=== PATIENT | female | born 1955 | race Caucasian/White ===

== ENCOUNTER 2019-05-28 13:59 | Inpatient (IN) ==
--- OUTSIDE RECORDS SUMMARY | 2019-05-28 14:01 | External Medical Summary | Continuity of Care Document ---
:1955 Author Name Enzo Gu, Provider Address Unavailable Unavailable , Care Team Providers Name Role Phone Nishant Schumacher [email or web address] Sara Jacobsen [email or web address] [email or web address] Unavailable Unavailable Unavailable Unavailable Unavailable Assessments Assessed Problems:Lyme disease Problems Lyme disease (088.81) (A69.20) Arthritis (716.90) (M19.90) Cutaneous lupus erythematosus (695.4) (L93.2) Allergies and Adverse Reactions No Known Drug Allergies (Allergy) Medications hydroCHLOROthiazide TABS Refills: 0 Toprol XL 25 MG Oral Tablet Extended Release 24 Hour Refills: 0 Norvasc TABS Refills: 0 Betamethasone Dipropionate Aug 0.05 % Ex ternal Cream; Apply to nose tid for one week then BID one week then daily one week then twice a week. Brittanie Jacobsen Start: 11-Aug-2017 Quantity: 1 15 GM Tube Refills: 1 Mupirocin 2 % External Ointment; Apply to nose 3 times per day for 7 days Brittanie Jacobsen Start: 11-Aug-2017 Quantity: 1 15 GM Tube Refills: 1 Hydroxychloroquine Sulfate 200 MG Oral Tablet; TAKE 1 TABLET DAILY. Brittanie Schumacher Start: 17-Apr-2015 Quantity: 90 Refills: 2 Mometasone Furoate 0.1 % External Ointme nt; APPLY TO AFFECTED AREA(S) ONCE DAILY DIRECTED. Brittanie Schumacher Start: 17-Apr-2015 Quantity: 1 45 GM Tube Refills: 6 Doxycycline Hyclate 100 MG Oral Tablet; take one tablet BID 1 hour before or 2 hours after meal with a full glass of water. Brittanie Jacobsen Start: 18-Aug-2017 Quantity: 180 Refills: 0 Procedures Procedures not documented Immunizations Immunizations not documented Interventions Medication ChangesDoxycycline Hyclate 100 MG Oral Tablet - Start Plan of Treatment Planned Observations Planned Goals not documented Results No Known Results Results not documented Encounters Appointment; Sara Jacobsen M.D. 11-Aug-2017 13:00 Encounter Diagnosis: Problem not documented
--- OUTSIDE RECORDS SUMMARY | 2019-05-28 14:02 | External Medical Summary | Continuity of Care Document ---
:1955 Author Name Enzo Gu, Provider Address Unavailable Unavailable , Care Team Providers Name Role Phone Nishant Schumacher [email or web address] Sara [email or web address] [email or web address] Unavailable Unavailable Unavailable Unavailable Unavailable Assessments Assessed Problems:Lyme disease Problems Cutaneous lupus erythematosus (695.4) (L93.2) Arthritis (716.90) (M19.90) Lyme disease (088.81) (A69.20) Allergies and Adverse Reactions No Known Drug Allergies (Allergy) Medications Norvasc TABS Refills: 0 Toprol XL 25 MG Oral Tablet Extended Release 24 Hour Refills: 0 hydroCHLOROthiazide TABS Refills: 0 Hydroxychloroquine Sulfate 200 MG Oral Tablet; TAKE 1 TABLET DAILY. Brittanie Schumacher Start: 17-Apr-2015 Quantity: 90 Refills: 2 Mometasone Furoate 0.1 % External Ointme nt; APPLY TO AFFECTED AREA(S) ONCE DAILY DIRECTED. Brittanie Schumacher Start: 17-Apr-2015 Quantity: 1 45 GM Tube Refills: 6 Mupirocin 2 % External Ointment; Apply to nose 3 times per day for 7 days Brittanie Jacobsen Start: 11-Aug-2017 Quantity: 1 15 GM Tube Refills: 1 Betamethasone Dipropionate Aug 0.05 % Ex ternal Cream; Apply to nose tid for one week then BID one week then daily one week then twice a week. Brittanie Jacobsen Start: 11-Aug-2017 Quantity: 1 15 GM Tube Refills: 1 Doxycycline Hyclate 100 MG Oral Tablet; take [...]
[2019-05-28] MEDS ORDERED: SODIUM CHLORIDE 0.9% 1000ML 500 ML IV ONE (14:22)
--- NOTE | 2019-05-28 14:28 | Emergency Department Note ---
Impression & Plan Acute hyponatremia, Acute hypokalemia, Weakness ED Provider Note NAME: KEVEN MULLEN AGE: 64 SEX: F : 1955 ARRIVES VIA: Walk-In INFORMANT: Patient, ED PROVIDER(S): Rd White DO CHIEF COMPLAINT: Hyponatremia HPI: Patient is a 64-year-old female that presents the ER with a past medical history of arthritis and lupus for abnormal labs. She notes that she passed out 3 x 2 weeks ago. Both of these occurred when she was up walking and there is no prodromal symptoms. She was seen by her PCP the following week and had blood work. She denied any chest pain or shortness of breath. She has no complaints at this time. Blood work resulted and she got a phone call today which showed hyponatremia. She was referred into the ER for further work-up for the hyponatremia. She denies any chest pain, shortness of breath, nausea vomiting diarrhea. She notes she is feeling better and her weakness has nearly resolved. She has no other complaints at this time. She has been instructed to decrease 1 of her medications from 50 mg to 25 mg but she is unsure of what it is. ROS: See above HPI for pertinent positives & negatives. A total of 10 systems reviewed and were otherwise negative. PAST MEDICAL HISTORY:See Below PAST SURGICAL HISTORY:See Below FAMILY HISTORY:See Below SOCIAL HISTORY:See Below HOME MEDICATIONS:See Below ALLERGIES:See Below VITALS:See Below PHYSICAL EXAMINATION: GENERAL: Sitting up in bed, alert, well appearing, well nourished, no distress, non-toxic EYE EXAM: normal conjunctiva. PERRL and EOM's grossly intact. FACE: Malar rash along the bridge of the nose and bilateral cheeks OROPHARYNX: no exudate, no erythema, lips, buccal mucosa, and tongue normal and mucous membranes are moist NECK: supple, no nuchal rigidity, no adenopathy, non-tender LUNGS: Clear to auscultation. Normal chest wall mechanics HEART: no murmurs, S1 normal and S2 normal ABDOMEN: abdomen soft, non-tender, normo-active bowel sounds, no masses, no rebo und or guarding. BACK: Back is symmetrical on inspection and there is no deformity, no midline tenderness, no CVA tenderness. SKIN: no rashes and no bruising UPPER EXTREMITIES: upper extremities are grossly normal. LOWER EXTREMITIES: No pitting edema. NEURO EXAM: Normal sensorium, cranial nerves II-XII grossly intact, normal speech, no gross weakness of arms, no gross weakness of legs. MEDICAL DECISION MAKING: Patient is a 64-year-old female who presents the ER referred in by the PCP for weakness. Patient was seen 2 weeks ago for syncopal episode. Patient had blood work done at the PCPs office over a week ago. She was called today to inform her that her serum sodium was low. She notes that she is feeling better as opposed to a week ago. IV was established blood work was obtained shows no significant leukocytosis or anemia. INR was unremarkable. BMP with a significantly low sodium at 118. Potassium was low at 2.4. Magnesium was borderline low at 1.8. LFTs bilirubin was unremarkable. TSH unremarkable. UA was slightly contaminated with multiple epithelial cells. Urine osmolarity was low at 107. Serum osmolality was low at 248. Patient was already given IV fluids prior to results of the urine and serum osmolarity. She was also given IV potassium and oral potassium. She was accidentally given 10 mEq of potassium acetate as opposed to potassium chloride. She was also given 1 g IV magnesium. This is discussed with [facility] hospitalist and patient was admitted for hyponatremia. Triage Nursing notes reviewed. Prior medical records reviewed Vital Signs: reviewed and remarkable for hypertension Differential diagnosis: Differential diagnosis includes etiologies such as ectopic , dysfunction uterine bleeding, bleeding dyscrasia, trauma, infection, as well as others were entertained.n ER treatment provided: See below Diagnostics interpreted by me: ECG: Sinus rhythm rate of 69 Normal axis No PVCs QTC slightly prolonged at 472 Cardiac Monitoring: Sinus rhythm rate 67 Laboratory studies: As stated above and show below. Imaging studies: Portable AP upright 1 view of the chest shows no focal infiltrate or pn eumothorax. Consultation(s): Jammie lawton KEY BED INSTALLER from [facility] ED COURSE: Procedures: none Critical Care: None Past Med/Surg History Medical History (Updated 05/28/19 @ 17:[address] DO) Arthritis Hypertension Lumbar radiculopathy Lupus Surgical History (Updated 05/28/19 @ 16:57 by AMADOU North) History of hysterectomy Social History Preferred Language: Japanese Communication Ability: Effective Beliefs That Will Affect Care: Amish Amish Beliefs: BUDDHIST Current Living Situation: Spouse Other Information That Helps Us Care for You: No Feels Safe at Home: Yes Safety Concerns: Feels Safe At This Time Smoking Status: Current every day smoker Tobacco Type: cigarettes ; Cigarettes Per Day: 10 ; Hx Alcohol Use: Yes Alcohol type: wine Hx Substance Use: No Allergies Allergies Allergy/AdvReac Type Severity Reaction Status Date / Time lactose AdvReac Gastrointestinal Verified 05/28/19 14:31 Upset Home Meds Home Medications Medication Instructions Recorded Confirmed chlorthalidone 25 mg PO DAILY 05/28/19 05/28/19 cholecalciferol (vitamin D3) 125 mcg PO DAILY 05/28/19 05/28/19 [Vitamin D3] duloxetine 60 mg PO DAILY 05/28/19 05/28/19 estradiol 1 g VAGINAL DAILY 05/28/19 05/28/19 methocarbamol 500 mg PO QID PRN 05/28/19 05/28/19 metoprolol tartrate 25 mg PO BID 05/28/19 05/28/19 quinapril 40 mg PO DAILY 05/28/19 05/28/19 Results & Data (ED) Vital Signs Vital Signs - 24 hr 05/28/19 14:00 05/28/19 15:30 05/28/19 16:41 Temperature 37.0 C Temperature Source Oral Pulse Rate 77 Pulse Rate [Apical] 75 65 Pulse Rhythm [Apical] Regular Regular Respiratory Rate 16 17 17 Respiratory Effort / Characteristics Non-Labored Spontaneous Non-Labored Spontaneous Respiratory Depth Normal Normal Blood Pressure 170/107 H Blood Pressure [Right Arm] 175/97 H 189/99 H Blood Pressure Mean 128 Blood Pressure Mean [Right Arm] 123 129 Pulse Oximetry 94 96 96 Oxygen Delivery Method Room Air Room Air Room Air Sepsis Recent Fever Within 48 Hours No Sepsis New/Unexplained Change in Mental Status No Sepsis Action Taken by Nursing No Action Required 05/28/19 16:50 Temperature Temperature Source Pulse Rate Pulse Rate [Apical] Pulse Rhythm [Apical] Respiratory Rate Respiratory Effort / Characteristics Respiratory Depth Blood Pressure Blood Pressure [Right Arm] Blood Pressure Mean Blood Pressure Mean [Right Arm] Pulse Oximetry Oxygen Delivery Method Room Air Sepsis Recent Fever Within 48 Hours Sepsis New/Unexplained Change in Mental Status Sepsis Action Taken by Nursing Laboratory Data Result diagrams: 05/28/19 14:45 05/28/19 14:45 Lab Results 05/28/19 05/28/1920 Range/Units 14:45 14:45 14:45 WBC 6.29 (4.8-10.8) K/uL RBC 4.34 (4.2-5.4) M/uL Hgb 15.0 (12.0-16.0) g/dL Hct 42.2 (37-47) % MCV 97.2 (80-100) fL MCH 34.6 H (25-34) pg MCHC 35.5 (32-36) g/dL Plt Count 235 (130-400) K/uL Immature Gran % (Auto) 0.3 % Neut % (Auto) 68.6 % Lymph % (Auto) 24.6 % [place] % (Auto) 6.2 % Eos % (Auto) 0.3 % Baso % (Auto) 0.0 % Immature Gran # (Auto) 0.02 (0.00-0.02) K/uL Neut # (Auto) 4.31 (1.4-6.5) K/uL Lymph # (Auto) 1.55 (1.2-3.4) K/uL [place] # (Auto) 0.39 (0.11-0.59) K/uL Eos # (Auto) 0.02 (0-0.5) K/uL Baso # (Auto) 0.00 (0-0.2) K/uL RBC Morphology Unremarkable PT 10.8 (9.0-12.0) Seconds INR 1.0 (0.9-1.1) D-Dimer 370 (0-500) ug/L FEU Sodium 118 L* (136-145) mmol/L Potassium 2.4 L* (3.5-5.1) mmol/L Chloride 74 L (98-107) mmol/L Carbon Dioxide 40 H (21-32) mmol/L Anion Gap 4.0 (3-11) BUN 8 (7-18) mg/dl Creatinine 0.56 L (0.6-1.2) mg/dl Est Cr Clr Drug Dosing 62.5 ml/min Est GFR ( Amer) 115.8 Est GFR (Non-Af Amer) 99.9 BUN/Creatinine Ratio 14.7 (10-20) Glucose 97 (70-99) mg/dl Osmolality (280-300) mOsm/kg Calcium 9.2 (8.5-10.1) mg/dl Magnesium 1.8 (1.8-2.4) mg/dl Total Bilirubin 0.5 (0.2-1) mg/dl AST 31 (15-37) U/L ALT 26 (12-78) U/L Alkaline Phosphatase 123 H (45-117) U/L Troponin I < 0.015 (0-0.045) ng/ml Total Protein 7.7 (6.4-8.2) gm/dl Albumin 3.4 (3.4-5.0) gm/dl Globulin 4.3 H (2.5-4.0) gm/dl Albumin/Globulin Ratio 0.8 L (0.9-2) TSH 0.828 (0.300-4.500) uIu/ml Urine Color Urine Appearance (Clear) Urine pH (4.5-7.5) Ur Specific Wesley (1.000-1.030) Urine Protein (Negative) Urine Glucose (UA) (Negative) Urine Ketones (Negative) Urine Blood (Negative) Urine Nitrite (Negative) Urine Bilirubin (Negative) Urine Urobilinogen (Negative) Ur Leukocyte Esterase (Negative) Urine RBC (0-4) /hpf Urine WBC (0-5) /hpf Ur Epithelial Cells (0-5) /lpf Urine Bacteria (Negative) Urine Osmolality (500-800) mOsm/kg Urine Sodium mmol/L Urine Potassium mmol/L Urine Chloride mmol/L 05/28/19 05/28/19 05/28/19 Range/Units 14:45 15:27 15:27 WBC (4.8-10.8) K/uL RBC (4.2-5.4) M/uL Hgb (12.0-16.0) g/dL Hct (37-47) % MCV (80-100) fL MCH (25-34) pg MCHC (32-36) g/dL Plt Count (130-400) K/uL Immature Gran % (Auto) % Neut % (Auto) % Lymph % (Auto) % [place] % (Auto) % Eos % (Auto) % Baso % (Auto) % Immature Gran # (Auto) (0.00-0.02) K/uL Neut # (Auto) (1.4-6.5) K/uL Lymph # (Auto) (1.2-3.4) K/uL [place] # (Auto) (0.11-0.59) K/uL Eos # (Auto) (0-0.5) K/uL Baso # (Auto) (0-0.2) K/uL RBC Morphology PT (9.0-12.0) Seconds INR (0.9-1.1) D-Dimer (0-500) ug/L FEU Sodium (136-145) mmol/L Potassium (3.5-5.1) mmol/L Chloride (98-107) mmol/L Carbon Dioxide (21-32) mmol/L Anion Gap (3-11) BUN (7-18) mg/dl Creatinine (0.6-1.2) mg/dl Est Cr Clr Drug Dosing ml/min Est GFR ( Amer) Est GFR (Non-Af Amer) BUN/Creatinine Ratio (10-20) Glucose (70-99) mg/dl Osmolality 248 L (280-300) mOsm/kg Calcium (8.5-10.1) mg/dl Magnesium (1.8-2.4) mg/dl Total Bilirubin (0.2-1) mg/dl AST (15-37) U/L ALT (12-78) U/L Alkaline Phosphatase (45-117) U/L Troponin I (0-0.045) ng/ml Total Protein (6.4-8.2) gm/dl Albumin (3.4-5.0) gm/dl Globulin (2.5-4.0) gm/dl Albumin/Globulin Ratio (0.9-2) TSH (0.300-4.500) uIu/ml Urine Color Yellow Urine Appearance Clear (Clear) Urine pH 8.0 H (4.5-7.5) Ur Specific Wesley 1.006 (1.000-1.030) Urine Protein Negative (Negative) Urine Glucose (UA) Negative (Negative) Urine Ketones Negative (Negative) Urine Blood Negative (Negative) Urine Nitrite Positive A (Negative) Urine Bilirubin Negative (Negative) Urine Urobilinogen Negative (Negative) Ur Leukocyte Esterase Trace H (Negative) Urine RBC 0-4 (0-4) /hpf Urine WBC 10-30 H (0-5) /hpf Ur Epithelial Cells 10-20 H (0-5) /lpf Urine Bacteria 3+ H (Negative) Urine Osmolality (500-800) mOsm/kg Urine Sodium 19 mmol/L Urine Potassium 19.4 mmol/L Urine Chloride 17 mmol/L 05/28/19 Range/Units 15:27 WBC (4.8-10.8) K/uL RBC (4.2-5.4) M/uL Hgb (12.0-16.0) g/dL Hct (37-47) % MCV (80-100) fL MCH (25-34) pg MCHC (32-36) g/dL Plt Count (130-400) K/uL Immature Gran % (Auto) % Neut % (Auto) % Lymph % (Auto) % [place] % (Auto) % Eos % (Auto) % Baso % (Auto) % Immature Gran # (Auto) (0.00-0.02) K/uL Neut # (Auto) (1.4-6.5) K/uL Lymph # (Auto) (1.2-3.4) K/uL [place] # (Auto) (0.11-0.59) K/uL Eos # (Auto) (0-0.5) K/uL Baso # (Auto) (0-0.2) K/uL RBC Morphology PT (9.0-12.0) Seconds INR (0.9-1.1) D-Dimer (0-500) ug/L FEU Sodium (136-145) mmol/L Potassium (3.5-5.1) mmol/L Chloride (98-107) mmol/L Carbon Dioxide (21-32) mmol/L Anion Gap (3-11) BUN (7-18) mg/dl Creatinine (0.6-1.2) mg/dl Est Cr Clr Drug Dosing ml/min Est GFR ( Amer) Est GFR (Non-Af Amer) BUN/Creatinine Ratio (10-20) Glucose (70-99) mg/dl Osmolality (280-300) mOsm/kg Calcium (8.5-10.1) mg/dl Magnesium (1.8-2.4) mg/dl Total Bilirubin (0.2-1) mg/dl AST (15-37) U/L ALT (12-78) U/L Alkaline Phosphatase (45-117) U/L Troponin I (0-0.045) ng/ml Total Protein (6.4-8.2) gm/dl Albumin (3.4-5.0) gm/dl Globulin (2.5-4.0) gm/dl Albumin/Globulin Ratio (0.9-2) TSH (0.300-4.500) uIu/ml Urine Color Urine Appearance (Clear) Urine pH (4.5-7.5) Ur Specific Wesley (1.000-1.030) Urine Protein (Negative) Urine Glucose (UA) (Negative) Urine Ketones (Negative) Urine Blood (Negative) Urine Nitrite (Negative) Urine Bilirubin (Negative) Urine Urobilinogen (Negative) Ur Leukocyte Esterase (Negative) Urine RBC (0-4) /hpf Urine WBC (0-5) /hpf Ur Epithelial Cells (0-5) /lpf Urine Bacteria (Negative) Urine Osmolality 107 L (500-800) mOsm/kg Urine Sodium mmol/L Urine Potassium mmol/L Urine Chloride mmol/L Administered Medications Potassium Chloride (K Zackary / Wtr) 10 meq IV Q1H PEDRO Stop: 05/28/19 17:46 Last Admin: 05/28/19 17:03 Dose: 10 meq Documented by: [id number] Discontinued Medications Sodium Chloride (Nss 1000ml) 1,000 mls @ 999 mls/hr IV .Q1H1M PEDRO Stop: 05/28/19 15:30 Last Infusion: 05/28/19 16:24 Dose: 0 mls/hr Documented by: [id number] Admin: 05/28/19 14:50 Dose: 999 mls/hr Documented by: [id number] Sodium Chloride (Nss 1000ml) 500 mls @ 999 mls/hr IV .Q31M ONE Stop: 05/28/19 14:52 Last Infusion: 05/28/19 15:42 Dose: 0 mls/hr Documented by: [id number] Admin: 05/28/19 14:50 Dose: 999 mls/hr Documented by: [id number] Potassium Acetate 10 meq/ (Sodium Chloride) 105 mls @ 105 mls/hr IV Q1H PEDRO Stop: 05/28/19 17:59 Last Infusion: 05/28/19 17:03 Dose: 0 mls/hr Documented by: [id number] Admin: 05/28/19 15:57 Dose: 105 mls/hr Documented by: [id number] Magnesium Sulfate/Dextrose (Magnesium Sulfate / D5w) 1 gm in 100 mls @ 100 mls/hr IV ONE ONE Stop: 05/28/19 16:46 Last Admin: 05/28/19 16:30 Dose: 100 mls/hr Documented by: [id number] Potassium Chloride (Klor-Con M20) 40 meq PO NOW STA Stop: 05/28/19 15:47 Last Admin: 05/28/19 15:54 Dose: 40 meq Documented by: [id number] Discharge Plan Visit Data Chief Complaint: Abnormal Labs/Diagnostic Testing Stated Complaint: LOW SODIUM, REF'D BY DOC ED Provider: Rd White Discharge Problem: Acute hyponatremia, Acute hypokalemia, Weakness Discharge Instructions Interventions: ED Discharge Assessment Last Done: 05/28/19 16:50 Forms Stand Alone Forms: [facility] Prescriptions Prescriptions: No Action methocarbamol 500 mg tablet 500 mg PO QID PRN (Reason: Muscle Spasm) RF: 0 chlorthalidone 25 mg tablet 25 mg PO DAILY RF: 0 metoprolol tartrate 25 mg tablet 25 mg PO BID RF: 0 duloxetine 60 mg capsule,delayed release(DR/EC) 60 mg PO DAILY RF: 0 quinapril 40 mg Tablet 40 mg PO DAILY RF: 0 estradiol 0.01 % (0.1 mg/gram) cream 1 g VAGINAL DAILY RF: 0 cholecalciferol (vitamin D3) [Vitamin D3] 125 mcg (5,000 unit) Tablet 125 mcg PO DAILY RF: 0
[2019-05-28] MEDS ORDERED: SODIUM CHLORIDE 0.9% 1000ML 1,000 ML IV SCH (14:30)
--- NOTE | 2019-05-28 14:52 | XRay Report ---
SINGLE VIEW CHEST CLINICAL HISTORY: Generalized weakness. FINDINGS: An AP, portable, upright chest radiograph is obtained. No prior studies are available for c omparison at the time of dictation. The examination is degraded by portable technique and patient rot ation. The cardiomediastinal silhouette is unremarkable noting atherosclerotic calcification of the thoracic aorta. The lungs and pleural spaces are clear. No pneumothorax is seen. The skeletal structu res are osteopenic. The bony thorax is grossly intact. IMPRESSION: No active disease in the chest. ACT 112: Negative or not required by law. Electronically signed by: Amish Willett M.D. 05/28/2019 2:51 PM
[2019-05-28 15:09] LABS: D Dimer 370 ug/L FEU (0-500); Prothrombin Time 10.8 Seconds (9.0-12.0)
--- NOTE | 2019-05-28 15:09 | Electrocardiogram Report ---
Test Reason : Blood Pressure : / mmHG Vent. Rate : 069 BPM Atrial Rate : 069 BPM P-R Int : 172 ms QRS Dur : 074 ms QT Int : 440 ms P-R-T Axes : 043 -18 069 degrees QTc Int : 472 ms Normal sinus rhythm Anterior infarct , age undetermined Prolonged QT Abnormal ECG No previous ECGs available Confirmed by Cooper Huber ([id number]) on 05/28/2019 3:09:13 PM Referred By: Confirmed By:Cooper Huber
[2019-05-28 15:35] LABS: Alanine Aminotransferase 26 U/L (12-78); Albumin Globulin Ratio 0.8 (0.9-2); Albumin Level 3.4 gm/dl (3.4-5.0); Alkaline Phosphatase 123 U/L (45-117); Aspartate Aminotransferase 31 U/L (15-37); BUN Creatinine Ratio 14.7 (10-20); Bilirubin,Total 0.5 mg/dl (0.2-1); Blood Urea Nitrogen 8 mg/dl (7-18); Calcium 9.2 mg/dl (8.5-10.1); Carbon Dioxide 40 mmol/L (21-32); Chloride 74 mmol/L (98-107); Creatinine Clr Calc Pharmacy 62.5 ml/min; Est GFR (African American) 115.8; Est GFR (Non-African American) 99.9; Globulin 4.3 gm/dl (2.5-4.0); Glucose 97 mg/dl (70-99); Magnesium 1.8 mg/dl (1.8-2.4); Potassium 2.4 mmol/L (3.5-5.1); Sodium 118 mmol/L (136-145); Thyroid Stimulating Hormone 0.828 uIu/ml (0.300-4.500); Total Protein 7.7 gm/dl (6.4-8.2); Troponin I < 0.015 ng/ml (0-0.045)
[2019-05-28 15:36] LABS: Appearance Urine Clear (Clear); Bilirubin Urine Negative (Negative); Blood Urine Negative (Negative); Color Urine Yellow; Glucose Urine UA Negative (Negative); Ketones Urine Negative (Negative); Leukocyte Esterase Urine Trace (Negative); Nitrite Urine Positive (Negative); Protein Urine Negative (Negative); Specific Gravity Urine 1.006 (1.000-1.030); Urobilinogen Urine Negative (Negative)
[2019-05-28] MEDS ORDERED: POTASSIUM CHLORIDE 20 MEQ TABCR PO STA ×2 (15:46→20:45)
[2019-05-28] MEDS ORDERED: MAGNESIUM SULFATE / D5W 1 GM/100 ML BAG IV ONE (15:47)
[2019-05-28 15:59] LABS: Bacteria Urine 3+ (Negative)
[2019-05-28 16:00] LABS: RBC Urine 0-4 /hpf (0-4)
[2019-05-28] MEDS ORDERED: POTASSIUM ACETATE 10 MEQ in 0.9 % SODIUM CHLORIDE 100 ML IV SCH (16:00)
[2019-05-28 16:04] LABS: Hematocrit (blood only) 42.2 % (37-47); Mean Corpuscular Hemoglobin 34.6 pg (25-34); Mean Corpuscular Hgb Conc 35.5 g/dL (32-36); Mean Corpuscular Volume 97.2 fL (80-100); Platelet Count 235 K/uL (130-400); Red Blood Count 4.34 M/uL (4.2-5.4); White Blood Count 6.29 K/uL (4.8-10.8)
[2019-05-28 16:08] LABS: Eosinophils # (auto) 0.02 K/uL (0-0.5); Eosinophils % (auto) 0.3 %; Immature Granulocytes # (auto) 0.02 K/uL (0.00-0.02); Immature Granulocytes % (auto) 0.3 %; Lymphocytes # (auto) 1.55 K/uL (1.2-3.4); Lymphocytes % (auto) 24.6 %; Monocytes # (auto) 0.39 K/uL (0.11-0.59); Monocytes % (auto) 6.2 %; Neutrophils # (auto) 4.31 K/uL (1.4-6.5); Neutrophils % (auto) 68.6 %; RBC Morphology Unremarkable
[2019-05-28 16:29] LABS: Urine Potassium 19.4 mmol/L
--- NOTE | 2019-05-28 17:01 | History & Physical Report ---
Date of Service May 28, 2019 Assessment & Plan (1) Hyponatremia: -Admit to telemetry -Patient sent by outpatient PCPs office for evaluation of hyponatremia. Patient was seen about 2 weeks ago for reports of lightheadedness and syncopal events. Patient was instructed to increase her water intake. Labs were obtained showing Na+ 120. Patient reports resolution of symptoms since increasing water intake. -Noted that patient had sodium level of 125 03/2018 -Na+ 118 today -Currently asymptomatic -? Some component of SIADH given prolonged smoking history and suspected underlying COPD. Patient also takes chlorthalidone. -Hold chlorthalidone -Received 1.5L NSS in ED -Nephrology consult, case discussed with Dr. Fraser -Hold on additional IVF for now, recheck labs at 1999, initiate 1.5L fluid restriction (2) Hypokalemia: -K+ 2.4 -Replace, follow K+ closely (3) Hypertension: -BP elevated, ? Situational -Holding chlorthalidone as above -Continue metoprolol and quinapril. Noted that metoprolol was reduced to 25mg BID from 50mg BID during recent office visit due to lightheadedness and syncope, may need to re-increase dose. -Monitor BP, make adjustments as needed (4) Lupus: -Not currently on any medications (5) DVT prophylaxis: -SQ Lovenox History of Present Illness Chief Complaint: Sent by doctor for abnormal labs Primary Care Provider: Alan Archibald DO 64-year-old female who was sent to the ED by referral of outpatient physician for evaluation of abnormal labs. Patient was seen in the clinic about 2 weeks ago for complaints of lightheadedness and syncope. Labs were obtained and showed a sodium of 120. Patient was sent to the ED for further evaluation. Patient reports that during her previous office evaluation, she was instructed to increase her water intake. Patient reports she has been drinking about 64 ounces of water per day. She reports she has had improvement in her symptoms, no further lightheadedness or syncopal events. Patient reports she is feeling much better. She denies any episodes of chest pain or shortness of breath. No fevers or chills. Denies abdominal pain, nausea, vomiting, diarrhea. Appetite and weight have been at baseline. She denies any urinary symptoms. In the ED, labs show sodium 118, K+ 2.4. Patient was given IVF, IV magnesium and potassium replacement. Allergies Allergy/AdvReac Type Severity Reaction Status Date / Time lactose AdvReac Gastrointestinal Verified 05/28/19 14:31 Upset Home Medications Home Medications Medication Instructions Recorded Confirmed Type chlorthalidone 25 mg PO DAILY 05/28/19 05/28/19 History cholecalciferol (vitamin D3) 125 mcg PO DAILY 05/28/19 05/28/19 History [Vitamin D3] duloxetine 60 mg PO DAILY 05/28/19 05/28/19 History estradiol 1 g VAGINAL DAILY 05/28/19 05/28/19 History methocarbamol 500 mg PO QID PRN 05/28/19 05/28/19 History metoprolol tartrate 25 mg PO BID 05/28/19 05/28/19 History quinapril 40 mg PO DAILY 05/28/19 05/28/19 History Past Med/Surg History Medical History Arthritis Hypertension Lumbar radiculopathy Lupus Surgical History History of hysterectomy Family History Mother Heart disease Father Stomach cancer Social History Preferred Language: Hungarian Communication Ability: Effective Beliefs That Will Affect Care: Adventist Adventist Beliefs: ISLAM Current Living Situation: Spouse Other Information That Helps Us Care for You: No Feels Safe at Home: Yes Safety Concerns: Feels Safe At This Time Smoking Status: Current every day smoker Tobacco Type: cigarettes ; Cigarettes Per Day: 10 ; Hx Alcohol Use: Yes Alcohol type: wine Alcohol Intake Frequency Comment: 1-2 glasses of wine, 4 times per week Hx Substance Use: No Review of Systems Review of Systems: ROS per HPI, all other systems reviewed and negative Physical Exam Constitutional: + thin; no acute distress Vitals as above Eyes: PERRL, conjunctivae normal, anicteric sclerae ENMT: external ear and nose normal, oropharynx normal Respiratory: normal respiratory effort; no respiratory distress Auscultation: + wheezes (Faint, scattered, expiratory) Cardiovascular: Rate/Rhythm: regular rate and regular rhythm Vessels: normal peripheral pulses Extremities: no edema Gastrointestinal (Abdomen): normal bowel sounds, soft, nontender, no hepatosplenomegaly Musculoskeletal: no cyanosis or clubbing, extremities motor strength 5/5 Skin: + rash (Butterfly rash) Skin warm and dry Neurologic: PERRL, EOMI, accommodation nl, no face palsy, no dysarthria Psychiatric: A+Ox3, euthymic affect Results & Data Results & Data ([facility]) Vital Signs (Past 12 Hours) Vital Signs Temp Pulse Pulse Resp BP BP Pulse Ox 05/28/19 16:41 65 17 189/99 H 96 05/28/19 15:30 75 17 175/97 H 96 05/28/19 14:00 37.0 C 77 16 170/107 H 94 Laboratory Results Short CBC 05/28/19 Range/Units 14:45 WBC 6.29 (4.8-10.8) K/uL Hgb 15.0 (12.0-16.0) g/dL Hct 42.2 (37-47) % Plt Count 235 (130-400) K/uL BMP 05/28/19 14:45 Sodium 118 L* Potassium 2.4 L* Chloride 74 L Carbon Dioxide 40 H BUN 8 Creatinine 0.56 L Glucose 97 Calcium 9.2 Cardiac Enzymes 05/28/19 Range/Units 14:45 Troponin I < 0.015 (0-0.045) ng/ml Liver Function 05/28/19 Range/Units 14:45 Total Bilirubin 0.5 (0.2-1) mg/dl AST 31 (15-37) U/L ALT 26 (12-78) U/L Alkaline Phosphatase 123 H (45-117) U/L Albumin 3.4 (3.4-5.0) gm/dl Urine 05/28/19 Range/Units 15:27 Urine Color Yellow Urine Appearance Clear (Clear) Urine pH 8.0 H (4.5-7.5) Ur Specific Trent 1.006 (1.000-1.030) Urine Protein Negative (Negative) Urine Glucose (UA) Negative (Negative) Diagnostic Findings CXR IMPRESSION: No active disease in the chest. Code Status & VTE Plan Code Status Patient is a full code as per my discussion with her. VTE Prophylaxis Plan VTE Prophylaxis will be ordered: Yes Supervising Physician Co-Signing Physician Notes I, Dr. Anmol Valle, have seen and assessed the patient with nurse practitioner and agree with the assessment and plan as above and would like to comment that On exam General: no acute distress Face: redness from chronic Lupus as per patient Lungs: breathing on room air. no crackles Heart: regular rate Abdomen: soft, nontender, normal bowel sounds Neuro/Extremities: awake and alert and moves all extremities and answers questions appropriately Assessment and Plan: HYPONATREMIA -patient sent to emergency room because of hyponatremia on outpatient labs -serum sodium is 118 on ED presentation -nephrology consult service Dr. Fraser recommends fluid restriction startegy HYPOKALEMIA -admission serum potassium 2.4, replete with potassium supplements to target 3.5 to 4. avoid chlorthalidone blood pressure medication at this time HYPERTENSION -avoid chlorthalidone blood pressure medication at this time -on metoprolol and OREN inhibitor LUPUS -patient not taking any medications for lupus and her face is very red. she no longer follows with dermatology clinic. 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 Maria will be the hospitalist following the patient starting on 05/29/2019
[2019-05-28] MEDS: POTASSIUM CHLORIDE 10 MEQ / 100ML WTR IV SCH ×2 (17:03→19:25)
[2019-05-28] MEDS ORDERED: ACETAMINOPHEN 325 MG TAB PO PRN (17:53)
[2019-05-28] MEDS ORDERED: METHOCARBAMOL 500 MG TABLET PO PRN (17:53)
[2019-05-28] MEDS ORDERED: ENOXAPARIN INJ 30 MG/0.3 ML SYR SQ SCH (19:00)
[2019-05-28 20:43] LABS: Calcium 8.5 mg/dl (8.5-10.1); Creatinine Clr Calc Pharmacy 73.7 ml/min; Est GFR (African American) 116.5; Est GFR (Non-African American) 100.5
[2019-05-28 20:44] LABS: Potassium 2.9 mmol/L (3.5-5.1)
[2019-05-28] MEDS: METOPROLOL TARTRATE 25 MG TAB PO SCH (21:18)
[2019-05-29 03:33] LABS: Albumin Level 2.8 gm/dl (3.4-5.0); BUN Creatinine Ratio 11.1 (10-20); Calcium 8.5 mg/dl (8.5-10.1); Creatinine Clr Calc Pharmacy 98.8 ml/min; Est GFR (African American) 128.3; Est GFR (Non-African American) 110.7; Potassium 3.3 mmol/L (3.5-5.1)
[2019-05-29 03:36] LABS: Albumin Globulin Ratio 0.8 (0.9-2); Bilirubin,Total 0.6 mg/dl (0.2-1); Globulin 3.7 gm/dl (2.5-4.0); Total Protein 6.5 gm/dl (6.4-8.2)
[2019-05-29] MEDS ORDERED: POTASSIUM CHLORIDE 20 MEQ TABCR PO ONE ×2 (04:45→17:15)
[2019-05-29] MEDS: METOPROLOL TARTRATE 25 MG TAB PO SCH ×2 (07:51→20:11)
[2019-05-29] MEDS: CHOLECALCIFEROL 1,000 UNITS 25 MCG TAB PO SCH (07:51)
[2019-05-29] MEDS: ENALAPRIL MALEATE 10 MG TAB PO SCH (07:51)
[2019-05-29] MEDS: DULOXETINE HCL 60 MG CAP PO SCH (07:52)
--- NOTE | 2019-05-29 10:55 | XRay Report ---
SINGLE VIEW CHEST CLINICAL HISTORY: Cough. FINDINGS: An AP, portable, upright chest radiograph is compared to study dated 05/28/2019. The examina tion is degraded by portable technique and patient rotation. The cardiomediastinal silhouette is unr emarkable. The lungs and pleural spaces are clear. No pneumothorax is seen. The skeletal structures a re osteopenic. The bony thorax is grossly intact. IMPRESSION: No active disease in the chest. ACT 112: Negative or not required by law. Electronically signed by: Amish Willett M.D. 05/29/2019 10:54 AM
[2019-05-29] MEDS: IPRATROPIUM BROMIDE NEB SOLN 0.02% 2.5 ML VIAL INH SCH ×3 (11:00→18:46)
[2019-05-29] MEDS: LEVALBUTEROL 1.25MG/0.5ML NEB INH SCH ×3 (11:00→18:47)
[2019-05-29] MEDS: DOXYCYCLINE HYCLATE 100 MG CAP PO SCH ×2 (12:12→20:11)
[2019-05-29] MEDS ORDERED: XOPENEX/ATROVENT 1.25mg/0.5MG NEB COMBO NEB SCH (13:00)
--- NOTE | 2019-05-29 14:19 | Nephrology Consultation ---
Date of Consultation May 29, 2019 Assessment & Plan (1) Hyponatremia: Multifactorial hyponatremia originally due most likely to thiazide type diuretic and compounded by polydipsia relative to solute intake, at least on presentation. Now w/ sNa dropping some on FR. she has severe lung disease from hx/exam: XRay not impressive; cough and lung exam is. Presenting sodium 118 with urine osmolality is 107, urine sodium 19, serum osmolality 248 and low potassium. -Sodium this morning 124; improving acceptably. -recheck sodium this afternoon is 121 >> will lasix 10 mg IV and recheck bmp this evening 2100 -cont FR for now 1.5L >>>>NEED strict I/O -agree w/ continuing cymbalta for now Present on Admission?: Yes (2) Hypokalemia: Potassium 3.3 this morning; had another 40 mEq p.o. this morning Await recheck chemistry and continue oral repletion Continue OREN inhibitor >>K 3.6 this PM >> will give 40 mEq po x 1 again Present on Admission?: Yes (3) Hypertension: Has generally been in the 150s to 170s systolic since presentation but improved this afternoon on 2 checks Continue to hold chlorthalidone Continue beta-cassie, continue enalapril -may need to introduce amlodipine in am but monitor -some situational HTN present Present on Admission?: Yes History of Present Illness Reason for Consultation: Hyponatremia Requesting Physician: Dr. Valle Attending Physician: Mendoza Maria MD History of Present Illness 64-year-old female whom I am asked to evaluate for hyponatremia after she was sent to the ER and admitted for the same. Past medical history includes hypertension, depression/anxiety, active tobacco abuse, lupus managed conservat ively. She is a 1 pack/day smoker for several decades. She has been on chlorthalidone for many years: Blood pressure managed with this, metoprolol, quinapril. She saw [facility] in March and on 03/19/18 had bmp drawn w/ sNa 125; then recheck at PCP office 05/21 was sNa 121. She saw her PCP approximately 2 weeks prior to presentation for lightheadedness and fall at home. Labs from May 21 as an outpatient were remarkable for serum sodium of 120. The patient was instructed after leaving PCP visit to increase fluid intake which she has done. Her presenting sodium was 118. Of note on ER eval at [facility] in March of this year, sodium was 125. She received approximately 1.5 L normal saline in the emergency department. She denied symptoms of emesis, diarrhea, poor p.o. intake. Stated she was feeling improved recently after increasing her fluids to about 64 ounces daily intake. Her potassium was low on presentation at 2.4: She received aggressive ablation with 70 mEq potassium chloride, of which 30 mill equivalents were IV. Admitting team discussed her care with me. We reviewed her medications at history together. Patient serum Prakash's were 248 with urinalysis 107 and urine sodium of 19. I recommended holding chlorthalidone but continuing Cymbalta and quinapril. I recommended a fluid limit of 1.5 L as well as aggressive replenishment of potassium and frequent lab monitoring. this morning, her serum sodium was 124 with a potassium of 3.3. Allergies Allergy/AdvReac Type Severity Reaction Status Date / Time lactose AdvReac Gastrointestinal Verified 05/28/19 14:31 Upset Home Medications Home Medications Medication Instructions Recorded Confirmed Type chlorthalidone 25 mg PO DAILY 05/28/19 05/28/19 History cholecalciferol (vitamin D3) 125 mcg PO DAILY 05/28/19 05/28/19 History [Vitamin D3] duloxetine 60 mg PO DAILY 05/28/19 05/28/19 History estradiol 1 g VAGINAL DAILY 05/28/19 05/28/19 History methocarbamol 500 mg PO QID PRN 05/28/19 05/28/19 History metoprolol tartrate 25 mg PO BID 05/28/19 05/28/19 History quinapril 40 mg PO DAILY 05/28/19 05/28/19 History Patient History Medical History Arthritis Hypertension Lumbar radiculopathy Lupus Tobacco abuse Surgical History History of hysterectomy Family History Mother Heart disease Father Stomach cancer Social History Preferred Language: Persian Communication Ability: Effective Beliefs That Will Affect Care: Amish Amish Beliefs: SIKHISM Current Living Situation: Spouse Other Information That Helps Us Care for You: No Feels Safe at Home: Yes Safety Concerns: Feels Safe At This Time Smoking Status: Current every day smoker Tobacco Type: cigarettes ; Cigarettes Per Day: 10 ; Hx Alcohol Use: Yes Alcohol type: wine Alcohol Intake Frequency Comment: 1-2 glasses of wine, 4 times per week Hx Substance Use: No Physical Exam Constitutional: well developed and well nourished; no acute distress Eyes: EOM intact bilaterally ENMT: Ears: no external ear abnormality Nose: no external nose abnormality Mouth: + dry oral mucous membranes Neck: no nuchal rigidity Respiratory: normal respiratory effort, + cough (thick), able to speak in complete sentences and + prolonged expiratory phase Auscultation: + diminished lung sounds, + rhonchi and + wheezes Cardiovascular: Rate/Rhythm: regular rate and regular rhythm Extremities: no edema Gastrointestinal (Abdomen): Inspection/Auscultation: normal bowel sounds Percussion/Palpation: abdomen soft; abdomen nontender Musculoskeletal: Extremities: strength 5/5 throughout Skin: + crusts (reddish malar well demarcated crusted rash) and + nails discolored Neurologic: knox, fluent speech, no tremor Psychiatric: A+Ox3, euthymic affect Results & Data Vital Signs (Past 12 Hours) Vital Signs Temp Pulse Resp BP BP Pulse Ox 05/29/19 13:31 63 18 95 05/29/19 11:11 36.5 C 56 L 16 127/78 98 05/29/19 11:03 70 18 95 05/29/19 07:00 36.6 C 70 16 166/95 H 91 05/29/19 04:40 36.7 C 65 15 154/102 H 91 Laboratory Results 05/28/19 14:45 05/29/19 14:08 Diagnostic Findings cxr no active disease in chest (1) Hypertension Hypertension type: essential hypertension Qualified Code(s): I10 - Essential (primary) hypertension
[2019-05-29 15:02] LABS: BUN Creatinine Ratio 8.4 (10-20); Calcium 8.6 mg/dl (8.5-10.1); Creatinine Clr Calc Pharmacy 60.9 ml/min; Est GFR (African American) 109.2; Est GFR (Non-African American) 94.2; Potassium 3.6 mmol/L (3.5-5.1)
[2019-05-29 15:26] LABS: Influenza A virus by PCR Neg for Influ A (Neg); Influenza B virus by PCR Neg for Influ B (Neg)
--- NOTE | 2019-05-29 16:42 | Hospitalist Progress Note ---
Date of Service May 29, 2019 Assessment & Plan (1) Hyponatremia: 64 year old female with history of Discoid Lupus, HTN, everyday smoker presenting with hyponatremia. HYPONATREMIA, LIKELY HYPOVOLEMIC IN THE SETTING OF CHLORTHALIDONE USE POLYDIPSIA Na improved from 118 to 124 with IV NSS Nephro consulted Chlorthalidone on hold ACUTE BRONCHITIS TOBACCO USE, POSSIBLE UNDERLYING COPD EXACERBATION, MILD smoke 1/2 pack per day reports productive cough, chest congestion today (+) BL wheezing no fever, no leukocytosis CXR: no pneumonia Influenza test: Negative ordered COVID test; per staff radiation therapist,according to meeting with senior leadership and lab personnel this morning, testing should be discussed first with Pulmonary SVCHYPOK discussed with Dr. Godfrey- Pulm-as per him, patient low risk for COVID 19, testing not indicated continue with droplet precaution, monitor closely started Doxycycline po bid, Nebs patient declining Prednisone monitor closely HYPOKALEMIA replaced, monitor HYPERTENSION continue usual Metoprool, Quinapril Amlodipine 5mg po daily to start tomorrow monitor DISCOID LUPUS not on any medications, not following with Rheum no arthralgias, or any other symptoms except above DEPRESSION continue Cymbalta DVT Prophylaxis Lovenox SC daily Admission and Anticipated Discharge Date Admission Date: May 28, 2019 Subjective ff up for hyponatremia seen resting in bed, not in distress reports chest congestion, cough productive of white sputum denies fever/chills, SOB has some anterior wall chest discomfort- but reports this started after her syncopal episode several days ago, not worsening denies weakness, lightheadedness, nausea ambulates to the bathroom with no problems Review of Systems Review of Systems: All systems reviewed & are unremarkable except as noted in HPI & below Physical Exam Physical Exam: General- oriented x 3, not in distress, speaks in sentences with no effort or accessory muscle use Head- atraumatic (+) butterfly rash Eyes- PERRL, EOMI, anicteric ENT- oropharynx clear Neck- supple, no JVD, no adenopathy, no thyromegaly; carotids +2/2, no bruits appreciated Lungs- (+) expiratory wheezing bilaterally no crackles Heart- normal rate, regular rhythm; no murmur, no gallop, no rub appreciated Abdomen- normal bowel sounds, nondistended, soft, nontender, no masses or hepatosplenomegaly Extremities- no pretibial edema, no calf tenderness; peripheral pulses intact Neuro- alert, oriented x 3; CN 2-12 grossly intact; motor 5/5 bilaterally;sensation 100% on all extremities; no other gross focal neurologic deficits Skin- warm & dry Results & Data Results & Data ([facility]) Vital Signs (Past 12 Hours) Vital Signs Temp Pulse Resp BP BP Pulse Ox 05/29/19 15:04 36.6 C 64 19 115/76 95 05/29/19 13:31 63 18 95 05/29/19 11:11 36.5 C 56 L 16 127/78 98 05/29/19 11:03 70 18 95 05/29/19 07:00 36.6 C 70 16 166/95 H 91 05/29/19 04:40 36.7 C 65 15 154/102 H 91
[2019-05-29] MEDS ORDERED: FUROSEMIDE 10 MG in SYRINGE 0 ML IV ONE (17:15)
[2019-05-29] MEDS: ENOXAPARIN INJ 40 MG/0.4 ML SYR SQ SCH (20:07)
[2019-05-29 21:17] LABS: BUN Creatinine Ratio 16.3 (10-20); Creatinine Clr Calc Pharmacy 60.9 ml/min; Est GFR (African American) 109.2; Est GFR (Non-African American) 94.2
[2019-05-30] MEDS: IPRATROPIUM BROMIDE NEB SOLN 0.02% 2.5 ML VIAL INH SCH ×3 (00:21→13:21)
[2019-05-30] MEDS: LEVALBUTEROL 1.25MG/0.5ML NEB INH SCH ×3 (00:23→13:26)
[2019-05-30 07:13] LABS: BUN Creatinine Ratio 20.3 (10-20); Calcium 8.9 mg/dl (8.5-10.1); Creatinine Clr Calc Pharmacy 86.8 ml/min; Est GFR (African American) 122.7; Est GFR (Non-African American) 105.9
[2019-05-30 07:29] LABS: Basophils # (auto) 0.03 K/uL (0-0.2); Basophils % (auto) 0.5 %; Eosinophils # (auto) 0.06 K/uL (0-0.5); Eosinophils % (auto) 1.1 %; Hematocrit (blood only) 39.1 % (37-47); Hemoglobin 13.9 g/dL (12.0-16.0); Immature Granulocytes # (auto) 0.02 K/uL (0.00-0.02); Immature Granulocytes % (auto) 0.4 %; Lymphocytes # (auto) 1.31 K/uL (1.2-3.4); Lymphocytes % (auto) 23.7 %; Mean Corpuscular Hemoglobin 36.2 pg (25-34); Mean Corpuscular Hgb Conc 35.5 g/dL (32-36); Mean Corpuscular Volume 101.8 fL (80-100); Mean Platelet Volume 8.7 fL (7.4-10.4); Monocytes # (auto) 0.47 K/uL (0.11-0.59); Monocytes % (auto) 8.5 %; Neutrophils # (auto) 3.64 K/uL (1.4-6.5); Neutrophils % (auto) 65.8 %; Platelet Count 227 K/uL (130-400); RDW Coefficient of Variation 12.5 % (11.5-14.5); RDW Standard Deviation 46.3 fL (36.4-46.3); Red Blood Count 3.84 M/uL (4.2-5.4); White Blood Count 5.53 K/uL (4.8-10.8)
[2019-05-30] MEDS: DOXYCYCLINE HYCLATE 100 MG CAP PO SCH ×2 (08:08→20:03)
[2019-05-30] MEDS: AMLODIPINE BESYLATE 5 MG TAB PO SCH (08:09)
[2019-05-30] MEDS: METOPROLOL TARTRATE 25 MG TAB PO SCH ×2 (08:09→20:03)
[2019-05-30] MEDS: CHOLECALCIFEROL 1,000 UNITS 25 MCG TAB PO SCH (09:35)
[2019-05-30] MEDS: DULOXETINE HCL 60 MG CAP PO SCH (09:35)
[2019-05-30] MEDS: ENALAPRIL MALEATE 10 MG TAB PO SCH (09:35)
--- NOTE | 2019-05-30 12:24 | Nephrology Progress Note ---
Date of Service May 30, 2019 Assessment & Plan (1) Hyponatremia: Multifactorial hyponatremia originally due most likely to thiazide type diuretic and compounded by polydipsia relative to solute intake, at least on presentation. However within day of admission she transferred more to an SIADH type picture, possibly driven in part by severe lung disease from hx/exam: XRay not impressive; cough and lung exam is. Presenting sodium 118 on May 27 at 3 PM with urine osmolality is 107, urine sodium 19, serum osmolality 248 and low potassium. -Sodium a.m. May 29 is 126; with serum osmolality 259, urine osmolality 331, random urine sodium 42 -started Lasix 10 mg IV twice daily 17 -Ordered recheck sodium this evening 1900 -cont FR for now 1.5L >>>>NEED strict I/O; appreciate nursing efforts to reinforce this with patient -agree w/ continuing cymbalta for now (2) Hypokalemia: Potassium 4.0 this morning; -Started p.o. 20 mEq daily potassium Continue OREN inhibitor Daily BMP (3) Hypertension: Has generally been in the 120s to 150s systolic past 24 hours; improved since presentation Continue to hold chlorthalidone Continue beta-cassie, continue enalapril -may need to introduce amlodipine in am but monitor -some situational HTN present Admission and Anticipated Discharge Date Admission Date: May 28, 2019 Subjective States breathing at baseline, though also states her cough is worse as an inpatient than in her residence. No nausea vomiting, no edema, no swelling. Increasing/ongoing anxiety about hospital discharge. Increasing arthritic pain; she continues however to state that lupus is at baseline Review of Systems Review of Systems: All systems reviewed & are unremarkable except as noted in HPI & below Physical Exam Constitutional: well developed and + underweight; no acute distress Eyes: EOM intact bilaterally ENMT: Ears: no external ear abnormality Nose: no external nose abnormality Mouth: + dry oral mucous membranes Neck: no nuchal rigidity Respiratory: normal respiratory effort, + cough (thick), able to speak in complete sentences and + prolonged expiratory phase Auscultation: + diminished lung sounds, + rhonchi and + wheezes (Inspiratory) Cardiovascular: Rate/Rhythm: regular rate and regular rhythm Extremities: no edema Gastrointestinal (Abdomen): Inspection/Auscultation: normal bowel sounds Percussion/Palpation: abdomen soft; abdomen nontender Musculoskeletal: Extremities: strength 5/5 throughout Skin: + crusts (reddish malar well demarcated crusted rash) and + nails discolored Neurologic: Moves all extremities, no tremor, fluent speech Psychiatric: A+Ox3, euthymic affect Results & Data ([facility]) Vital Signs (Past 12 Hours) Vital Signs Temp Pulse Pulse Resp BP Pulse Ox 05/30/19 12:09 36.7 C 63 18 144/89 H 94 05/30/19 08:30 76 05/30/19 07:12 74 18 93 05/30/19 04:00 36.6 C 69 17 123/76 90 05/30/19 00:24 69 16 92 Laboratory Results 05/30/19 06:35 05/30/19 06:34 (1) Hypertension Hypertension type: essential hypertension Qualified Code(s): I10 - Essential (primary) hypertension
[2019-05-30] MEDS ORDERED: FUROSEMIDE 10 MG in SYRINGE 0 ML IV ONE ×2 (12:30→16:30)
[2019-05-30] MEDS: POTASSIUM CHLORIDE 20 MEQ TABCR PO SCH (12:58)
--- NOTE | 2019-05-30 15:53 | Hospitalist Progress Note ---
Date of Service May 30, 2019 Assessment & Plan (1) Hyponatremia: 64 year old female with history of Discoid Lupus, HTN, everyday smoker presenting with hyponatremia. HYPONATREMIA, LIKELY HYPOVOLEMIC IN THE SETTING OF CHLORTHALIDONE VS POLYDIPSIA Na improved from 118 to 124 _> 126 Nephro consulted-appreciate input Chlorthalidone on hold cont Fluid restriction 1.5L daily , on Lasix 10 mg IV BID follow BMP closely ACUTE BRONCHITIS TOBACCO USE, POSSIBLE UNDERLYING COPD EXACERBATION, MILD smokes 1/2 pack per day cough has improved , no wheeze no fever, no leukocytosis CXR: no pneumonia Influenza test: Negative D/c Droplet precaution NO INDICATION FOR COVID -19 test; Per Dr Snell need for testing discussed with Pulmonary Service Dr Godfrey , patient found to be low risk for COVID 19 per pulm , testing not indicated cont Doxycycline po bid, Nebs HYPOKALEMIA replaced, monitor HYPERTENSION continue usual Metoprool, Quinapril Amlodipine 5mg po daily DISCOID LUPUS not on any medications, not following with Rheum will need dermatology and rheum follow up on dc DEPRESSION continue Cymbalta DVT Prophylaxis Lovenox SC daily Admission and Anticipated Discharge Date Admission Date: May 28, 2019 Subjective has non productive cough no fever or chills no complain of chest pain , no SOB , no CARRILLO Physical Exam Constitutional: WD/WN, vitals as above no acute distress Eyes: PERRL, conjunctivae normal, anicteric sclerae ENMT: Nose: + external nose abnormality (erythematous butterfly rash on nasal bridge/face -discoid rash) Neck: trachea midline, no thyromegaly Respiratory: normal respiratory effort and + cough; no respiratory distress Auscultation: no wheezes Cardiovascular: RRR, no murmur, no edema Gastrointestinal (Abdomen): normal bowel sounds, soft, nontender, no hepatosplenomegaly Musculoskeletal: no cyanosis or clubbing, extremities motor strength 5/5 Skin: no rashes, warm and dry Neurologic: PERRL, EOMI, accommodation nl, no face palsy, no dysarthria Psychiatric: A+Ox3, euthymic affect Results & Data Results & Data ([facility]) Vital Signs (Past 12 Hours) Vital Signs Temp Pulse Pulse Resp BP Pulse Ox 05/30/19 15:46 63 05/30/19 15:20 36.7 C 64 20 150/87 H 95 04/15/20 13:24 64 93 05/30/19 12:09 36.7 C 63 18 144/89 H 94 05/30/19 08:30 76 05/30/19 07:12 74 18 93 05/30/19 04:00 36.6 C 69 17 123/76 90
[2019-05-30] MEDS ORDERED: LEVALBUTEROL 1.25MG/0.5ML NEB INH PRN (19:00)
[2019-05-30] MEDS ORDERED: IPRATROPIUM BROMIDE NEB SOLN 0.02% 2.5 ML VIAL INH PRN (19:00)
[2019-05-30 19:40] LABS: BUN Creatinine Ratio 15.4 (10-20); Creatinine Clr Calc Pharmacy 70.3 ml/min; Est GFR (African American) 114.5; Est GFR (Non-African American) 98.8; Potassium 3.8 mmol/L (3.5-5.1)
[2019-05-30] MEDS: ENOXAPARIN INJ 40 MG/0.4 ML SYR SQ SCH (20:03)
[2019-05-31 07:37] LABS: BUN Creatinine Ratio 17.6 (10-20); Creatinine Clr Calc Pharmacy 90.4 ml/min; Est GFR (African American) 124.5; Est GFR (Non-African American) 107.4; Potassium 3.5 mmol/L (3.5-5.1)
[2019-05-31] MEDS: POTASSIUM CHLORIDE 20 MEQ TABCR PO SCH (09:06)
[2019-05-31] MEDS: DOXYCYCLINE HYCLATE 100 MG CAP PO SCH ×2 (09:06→20:09)
[2019-05-31] MEDS: ENALAPRIL MALEATE 10 MG TAB PO SCH (09:07)
[2019-05-31] MEDS: AMLODIPINE BESYLATE 5 MG TAB PO SCH (09:07)
[2019-05-31] MEDS: DULOXETINE HCL 60 MG CAP PO SCH (09:07)
[2019-05-31] MEDS: CHOLECALCIFEROL 1,000 UNITS 25 MCG TAB PO SCH (09:07)
[2019-05-31] MEDS: METOPROLOL TARTRATE 25 MG TAB PO SCH ×2 (09:08→20:09)
[2019-05-31] MEDS ORDERED: SODIUM CHLORIDE 0.9% 1000ML 250 ML IV ONE (10:08)
--- NOTE | 2019-05-31 10:12 | Nephrology Progress Note ---
Date of Service May 31, 2019 Assessment & Plan (1) Hyponatremia: Multifactorial hyponatremia originally due most likely to thiazide type diuretic and compounded by polydipsia relative to solute intake, at least on presentation. However within day of admission she transferred more to an SIADH type picture, possibly driven in part by severe lung disease from hx/exam: XRay not impressive; cough and lung exam is. Presenting sodium 118 on May 27 at 3 PM with urine osmolality is 107, urine sodium 19, serum osmolality 248 and low potassium. Sodium a.m. May 29 is 126; with serum osmolality 259, urine osmolality 331, random urine sodium 42 -started Lasix 10 mg IV twice daily 17 yesterday and she had 2 doses. However sodium dropped to 122 after this and improved this morning to 125, just about where it was on May 29. -will recheck chemistries at 1300 and consider at that point trial of 250 mL bolus normal saline or other -cont FR for now 1.5L >>>>NEED strict I/O; appreciate nursing efforts to reinforce this with patient -agree w/ continuing cymbalta for now >> Low threshold to consider CT chest Noncon to evaluate cough and wheezing (2) Hypokalemia: Potassium 3.5 this morning; -Started p.o. 20 mEq daily potassium > we will give extra one-time dose today of 40 mEq Continue OREN inhibitor Daily BMP (3) Hypertension: Has generally been in the 120s to 150s systolic past 24 hours; improved since presentation Continue to hold chlorthalidone Continue beta-cassie, continue enalapril -started amlodipine 5 mg daily on 05/29; monitor BP > this med can be slow to take effect; would not uptitrate as yet -some situational HTN present Admission and Anticipated Discharge Date Admission Date: May 28, 2019 Subjective Continues to state that her breathing is at baseline and continues to be anxious for hospital discharge. No nausea vomiting. Denies balance concerns. Denies voiding issues. Review of Systems Review of Systems: All systems reviewed & are unremarkable except as noted in HPI & below Physical Exam Constitutional: well developed and + underweight; no acute distress Eyes: EOM intact bilaterally Frequent thick cough and exam; lying flat on room air ENMT: Ears: no external ear abnormality Nose: no external nose abnormality Mouth: + dry oral mucous membranes Neck: no nuchal rigidity Respiratory: normal respiratory effort, + cough (thick), able to speak in complete sentences and + prolonged expiratory phase Auscultation: + diminished lung sounds, + rhonchi and + wheezes (Inspiratory and expiratory) Cardiovascular: Rate/Rhythm: regular rate and regular rhythm Extremities: no edema Gastrointestinal (Abdomen): Inspection/Auscultation: normal bowel sounds Percussion/Palpation: abdomen soft; abdomen nontender Musculoskeletal: Extremities: strength 5/5 throughout Skin: + crusts (reddish malar well demarcated crusted rash) and + nails discolored Neurologic: Moves all extremities, fluent speech, no tremor Psychiatric: A+Ox3, euthymic affect Results & Data ([facility]) Vital Signs (Past 12 Hours) Vital Signs Temp Pulse Pulse Resp BP Pulse Ox 05/31/19 07:17 65 05/31/19 07:09 36.6 C 68 16 157/96 H 91 05/31/19 04:38 92 05/31/19 04:29 37.1 C 76 19 155/81 H 88 L 05/31/19 01:06 70 05/30/19 23:07 36.8 C 63 18 147/88 H 92 Laboratory Results 05/30/19 06:35 05/31/19 06:05 (1) Hypertension Hypertension type: essential hypertension Qualified Code(s): I10 - Essential (primary) hypertension
[2019-05-31] MEDS ORDERED: AMLODIPINE BESYLATE 5 MG TAB PO SCH (10:15)
[2019-05-31] MEDS ORDERED: POTASSIUM CHLORIDE 20 MEQ TABCR PO ONE (10:30)
--- NOTE | 2019-05-31 10:33 | Hospitalist Progress Note ---
Date of Service May 31, 2019 Assessment & Plan (1) Hyponatremia: HYPONATREMIA: multifactorial ; due to Thiazide diuretics /excess free water /dilutional due to polydipsia Chlorthalidone d/c/ed Na improved from 118 to 124 _> 125 Nephro consulted-appreciate input possible underlying SIADH ( urine Osm elevated 331 /S Osm 254 ) cont Fluid restriction 1.5L daily given IV Lasix follow BMP closely ACUTE BRONCHITIS TOBACCO USE, POSSIBLE UNDERLYING COPD EXACERBATION, MILD smokes 1/2 pack per day cough has improved , no wheeze no fever, no leukocytosis CXR: no pneumonia Influenza test: Negative D/c Droplet precaution NO INDICATION FOR COVID -19 test; Per Dr Snell need for testing discussed with Pulmonary Service Dr Godfrey , patient found to be low risk for COVID 19 per pulm , testing not indicated cont Doxycycline po bid, Nebs UTI: urine culture E.coli added Rocephin HYPOKALEMIA replaced, monitor HYPERTENSION continue usual Metoprolol , Quinapril Chlorthalidone D/eric added Amlodipine 5mg PO daily DISCOID LUPUS not on any medications, refused to take Prednisone due to side effect not following with Rheumatology or Dermatology currently will need dermatology and rheum follow up on dc DEPRESSION continue Cymbalta DVT Prophylaxis Lovenox SC daily CODE STATUS : full code DISPOSITION; expected to be discharged home when medically stable Admission and Anticipated Discharge Date Admission Date: May 28, 2019 Subjective feels fine wants to be discharged home today if possible no cough , no fever or chills Review of Systems Review of Systems: All systems reviewed & are unremarkable except as noted in HPI & below Physical Exam Constitutional: WD/WN, vitals as above no acute distress Eyes: PERRL, conjunctivae normal, anicteric sclerae ENMT: external ear and nose normal, oropharynx normal Nose: + external nose abnormality (erythematous butterfly rash on nasal bridge/face -discoid rash) Neck: trachea midline, no thyromegaly Respiratory: normal respiratory effort and + cough; no respiratory distress Auscultation: no wheezes Cardiovascular: RRR, no murmur, no edema Gastrointestinal (Abdomen): normal bowel sounds, soft, nontender, no hepatosplenomegaly Musculoskeletal: no cyanosis or clubbing, extremities motor strength 5/5 Skin: no rashes, warm and dry Neurologic: PERRL, EOMI, accommodation nl, no face palsy, no dysarthria Psychiatric: A+Ox3, euthymic affect Results & Data Results & Data ([facility]) Vital Signs (Past 12 Hours) Vital Signs Temp Pulse Pulse Resp BP Pulse Ox 05/31/19 07:17 65 05/31/19 07:09 36.6 C 68 16 157/96 H 91 05/31/19 04:38 92 05/31/19 04:29 37.1 C 76 19 155/81 H 88 L 05/31/19 01:06 70 05/30/19 23:07 36.8 C 63 18 147/88 H 92
[2019-05-31] MEDS: cefTRIAXone SODIUM 2,000 MG in DEXTROSE 5% 50 ML IV SCH (11:26)
[2019-05-31 13:38] LABS: BUN Creatinine Ratio 13.4 (10-20); Calcium 8.8 mg/dl (8.5-10.1); Creatinine Clr Calc Pharmacy 76.8 ml/min; Est GFR (African American) 117.9; Est GFR (Non-African American) 101.8; Potassium 3.8 mmol/L (3.5-5.1)
[2019-05-31] MEDS ORDERED: FUROSEMIDE 10 MG in SYRINGE 0 ML IV ONE (17:23)
[2019-05-31] MEDS: UREA (URE-NA) 15 GM PACK PO SCH (17:47)
[2019-05-31] MEDS: SODIUM CHLORIDE 1 GM TABLET PO SCH ×2 (18:16→20:09)
[2019-05-31] MEDS ORDERED: COUGH DROP (SUGAR FREE) LOZ 24 LOZ/1 BOX BUCCAL STA (19:54)
[2019-05-31] MEDS ORDERED: COUGH DROP (SUGAR FREE) LOZ 24 LOZ/1 BOX BUCCAL ONE (19:57)
[2019-05-31] MEDS: ENOXAPARIN INJ 40 MG/0.4 ML SYR SQ SCH (20:07)
[2019-05-31 21:34] LABS: BUN Creatinine Ratio 64.2 (10-20); Calcium 9.2 mg/dl (8.5-10.1); Creatinine Clr Calc Pharmacy 76.8 ml/min; Est GFR (African American) 117.9; Est GFR (Non-African American) 101.8
[2019-06-01 07:12] LABS: BUN Creatinine Ratio 44.1 (10-20); Calcium 9.2 mg/dl (8.5-10.1); Creatinine Clr Calc Pharmacy 90.4 ml/min; Est GFR (African American) 124.5; Est GFR (Non-African American) 107.4; Potassium 3.6 mmol/L (3.5-5.1)
[2019-06-01] MEDS: AMLODIPINE BESYLATE 5 MG TAB PO SCH (08:08)
[2019-06-01] MEDS: CHOLECALCIFEROL 1,000 UNITS 25 MCG TAB PO SCH (08:08)
[2019-06-01] MEDS: ENALAPRIL MALEATE 10 MG TAB PO SCH (08:08)
[2019-06-01] MEDS: SODIUM CHLORIDE 1 GM TABLET PO SCH (08:08)
[2019-06-01] MEDS: DOXYCYCLINE HYCLATE 100 MG CAP PO SCH (08:08)
[2019-06-01] MEDS: METOPROLOL TARTRATE 25 MG TAB PO SCH (08:08)
[2019-06-01] MEDS: DULOXETINE HCL 60 MG CAP PO SCH (08:09)
[2019-06-01] MEDS: POTASSIUM CHLORIDE 20 MEQ TABCR PO SCH (08:09)
[2019-06-01] MEDS ORDERED: POTASSIUM CHLORIDE 20 MEQ TABCR PO ONE (09:12)
--- NOTE | 2019-06-01 09:16 | Nephrology Progress Note ---
Date of Service June 01, 2019 Assessment & Plan (1) Hyponatremia: Multifactorial hyponatremia originally due most likely to thiazide type diuretic and compounded by polydipsia relative to solute intake, at least on presentation. However within day of admission she transferred more to an SIADH type picture, possibly driven in part by severe lung disease from hx/exam: XRay not impressive; cough and lung exam is. Presenting sodium 118 on May 27 at 3 PM with urine osmolality is 107, urine sodium 19, serum osmolality 248 and low potassium. Sodium a.m. May 29 is 126; with serum osmolality 259, urine osmolality 331, random urine sodium 42 Dropped to 120 yesterday afternoon but back up to 127 today w/ Ochoa, lasix, salt tabs, FR -ordered recheck chemistries at 1530 >cont ochoa and salt tabs, ordered another dose IV lasix 10 mg x 1 -cont FR for now 1.5L >>>Ochoa ordered for pt >> [facility] (her local pharmacy) does not have it; Jeanine Pendleton is ordering for pt and costs $48 for 8 packets (4 days) and will be available on 06/03 for pickup >>>>NEED strict I/O; appreciate nursing efforts to reinforce this with patient -agree w/ continuing cymbalta for now >> Low threshold to consider CT chest Noncon to evaluate cough and wheezing >>she had CT w/ contrast showing RML collapse, for pulm eval and bronch consideration; will give 250 mL NS since she had IV contrast and is relatively dry (lasix/salt tab/ACEI/ FR) (2) Hypokalemia: Potassium 3.6 this morning; -Started p.o. 20 mEq daily potassium > we will give another extra one-time dose today of 40 mEq for now OREN inhibitor on hold d/t iv contrast this am Daily BMP (3) Hypertension: Has generally been in the 120s to 150s systolic past 24 hours; improved since presentation Continue to hold chlorthalidone Continue beta-cassie >got enalapril today then will hold pending repeat labs after IV contrast -started amlodipine 5 mg daily on 05/29; monitor BP > will increase to 10 mg daily today -some situational HTN present (4) Asymptomatic bacteriuria: present on admission; contaminated urine specimen; had tx empirically for uti Present on Admission?: Yes Admission and Anticipated Discharge Date Admission Date: May 28, 2019 Subjective No complaints including specifically no voiding concerns. Patient anxious for discharge and continues to press on when she can leave. Denies shortness of breath. Denies wheezing. Dates the cough is present only inpatient and is "because I do not like air conditioning." States her facial rash is worsening since admission and that she was told she has a UTI new since admission Review of Systems Review of Systems: All systems reviewed & are unremarkable except as noted in HPI & below Physical Exam Constitutional: well developed and + underweight; no acute distress Eyes: EOM intact bilaterally ENMT: Ears: no external ear abnormality Nose: no external nose abnormality Mouth: + dry oral mucous membranes Neck: no nuchal rigidity Respiratory: normal respiratory effort, + cough (thick), able to speak in complete sentences and + prolonged expiratory phase Auscultation: + diminished lung sounds; no rhonchi and no wheezes (Inspiratory and expiratory) Today for the first time since I have started examining her in the hospital she has no wheezes Cardiovascular: Rate/Rhythm: regular rate and regular rhythm Extremities: no edema Gastrointestinal (Abdomen): Inspection/Auscultation: normal bowel sounds Percussion/Palpation: abdomen soft; abdomen nontender Musculoskeletal: Extremities: strength 5/5 throughout Skin: + crusts (reddish malar well demarcated crusted rash) and + nails discolored Psychiatric: A+Ox3, euthymic affect Results & Data ([facility]) Vital Signs (Past 12 Hours) Vital Signs Temp Pulse Resp BP BP Pulse Ox 06/01/19 07:26 36.5 C 76 16 133/80 162/97 H 93 06/01/19 07:25 36.5 C 76 16 162/97 H 93 05/31/19 23:00 36.9 C 64 18 148/87 H 95 Laboratory Results 05/30/19 06:35 06/01/19 06:[address] chest w/ con FINDINGS: Small amount of mucoid material within the mainstem bronchi. The remaining central airways are patent. No pneumothorax. Trace left pleural effusion. Moderate emphysema. Small irregular density within the base of the left lower lobe medially favor scarring or atelectasis. A 3 mm subpleural nodule within the right lung apex on image 51. There is complete collapse of the right middle lobe. No definite mass or right hilar lymphadenopathy identified. No mediastinal or left hilar lymphadenopathy. Normal esophagus. Limited views of the upper abdomen demonstrate a normal liver and spleen. There is diffuse thickening of the right adrenal gland. This measures 2.2 x 1.6 cm. A single prominent right anterior diaphragmatic lymph node best seen on image 223 measuring 12 x 5 mm. Normal caliber thoracic aorta with no dissection. The heart is normal in size. The central pulmonary arteries are patent. No suspicious lytic or blastic osseous lesions. Healing/healed bilateral anterior rib fractures. IMPRESSION: 1. Complete collapse of the right middle lobe. No definite mass or right hilar lymphadenopathy. The right middle lobe bronchus appears patent. However, bronchoscopy recommended to exclude the possibility of a an underlying lesion. 2. Emphysema. 3. Diffuse thickening of the right adrenal gland. 4. Trace left pleural effusion. 5. Healing/healed bilateral anterior rib fractures. 6. A single prominent right anterior diaphragmatic lymph node as described above. This is of uncertain clinical significance. 7. These findings were called/faxed to the referring physician following dictation. (1) Hypertension Hypertension type: essential hypertension Qualified Code(s): I10 - Essential (primary) hypertension
[2019-06-01] MEDS ORDERED: FUROSEMIDE 10 MG in SYRINGE 0 ML IV ONE (09:20)
[2019-06-01] MEDS ORDERED: CIPROFLOXACIN 500 MG TAB PO SCH (09:45)
[2019-06-01] MEDS: cefTRIAXone SODIUM 2,000 MG in DEXTROSE 5% 50 ML IV SCH ×2 (10:14→10:56)
[2019-06-01] MEDS ORDERED: IOVERSOL 100ml IV PRN (11:01)
[2019-06-01] MEDS: UREA (URE-NA) 15 GM PACK PO SCH (11:05)
--- NOTE | 2019-06-01 11:35 | CT Scan Report ---
CHEST CT WITH CONTRAST CT DOSE: 150.37 mGycm HISTORY: Short of breath. Cough. TECHNIQUE: Multiaxial CT images of the chest were performed following the intravenous administration of contrast. A dose lowering technique was utilized adhering to the principles of ALARA. COMPARISON: None. FINDINGS: Small amount of mucoid material within the mainstem bronchi. The remaining central airways are patent. No pneumothorax. Trace left pleural effusion. Moderate emphysema. Small irregular density within the base of the left lower lobe medially favor scarring or atelectasis. A 3 mm subpleural nod ule within the right lung apex on image 51. There is complete collapse of the right middle lobe. No d efinite mass or right hilar lymphadenopathy identified. No mediastinal or left hilar lymphadenopathy. Normal esophagus. Limited views of the upper abdomen demonstrate a normal liver and spleen. There is diffuse thickening of the right adrenal gland. This measures 2.2 x 1.6 cm. A single prominent right anterior diaphragmatic lymph node best seen on image 223 measuring 12 x 5 mm. Normal caliber thoracic aorta with no dissection. The heart is normal in size. The central pulmonary arteries are patent. No suspicious lytic or blastic osseous lesions. Healing/healed bilateral anterior rib fractures. IMPRESSION: 1. Complete collapse of the right middle lobe. No definite mass or right hilar lymphadenopathy. The r ight middle lobe bronchus appears patent. However, bronchoscopy recommended to exclude the possibilit y of a an underlying lesion. 2. Emphysema. 3. Diffuse thickening of the right adrenal gland. 4. Trace left pleural effusion. 5. Healing/healed bilateral anterior rib fractures. 6. A single prominent right anterior diaphragmatic lymph node as described above. This is of uncertai n clinical significance. 7. These findings were called/faxed to the referring physician following dictation. ACT 112: Positive. There are findings on this exam that require communication between the performing entity and the patient following Patient Test Result Information Act ([place] Act 112) guidelines. Electronically signed by: Fuad Romero M.D. 06/01/2019 11:34 AM
[2019-06-01] MEDS ORDERED: SODIUM CHLORIDE 0.9% 1000ML 250 ML IV ONE (12:56)
--- NOTE | 2019-06-01 12:56 | Hospitalist Progress Note ---
Date of Service June 01, 2019 Assessment & Plan Admission and Anticipated Discharge Date Admission Date: May 28, 2019 Subjective Attending addendum: CT chest with contrast: Report reviewed Shows complete collapse of the right middle lobe. No definite mass or right hilar lymphadenopathy. Right middle lobe bronchus appears to be patent. 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 Marley Vasquez MD Results & Data Results & Data ([facility]) Vital Signs (Past 12 Hours) Vital Signs Temp Pulse Resp BP BP Pulse Ox 06/01/19 07:26 36.5 C 76 16 133/80 162/97 H 93 06/01/19 07:25 36.5 C 76 16 162/97 H 93
[2019-06-01] MEDS ORDERED: AMLODIPINE BESYLATE 5 MG TAB PO ONE (12:57)
[2019-06-01 16:05] LABS: BUN Creatinine Ratio 62.9 (10-20); Calcium 9.4 mg/dl (8.5-10.1); Creatinine Clr Calc Pharmacy 70.2 ml/min; Est GFR (African American) 114.5; Est GFR (Non-African American) 98.8
--- NOTE | 2019-06-01 16:59 | Discharge Summary ---
Date of Service June 01, 2019 Admission HPI Per Admitting Provider 64-year-old female who was sent to the ED by referral of outpatient physician for evaluation of abnormal labs. Patient was seen in the clinic about 2 weeks ago for complaints of lightheadedness and syncope. Labs were obtained and showed a sodium of 120. Patient was sent to the ED for further evaluation. Patient reports that during her previous office evaluation, she was instructed to increase her water intake. Patient reports she has been drinking about 64 ounces of water per day. She reports she has had improvement in her symptoms, no further lightheadedness or syncopal events. Patient reports she is feeling much better. She denies any episodes of chest pain or shortness of breath. No fevers or chills. Denies abdominal pain, nausea, vomiting, diarrhea. Appetite and weight have been at baseline. She denies any urinary symptoms. In the ED, labs show sodium 118, K+ 2.4. Patient was given IVF, IV magnesium and potassium replacement. Principal Diagnosis HYPONATREMIA /URINARY TRACT INFECTION /BRONCHITIS /ABNORMAL CT CHEST SCAN Discharge Exam Constitutional WD/WN, vitals as above no acute distress Eyes PERRL, conjunctivae normal, anicteric sclerae ENMT external ear and nose normal, oropharynx normal Nose: + external nose abnormality (erythematous butterfly rash on nasal bridge/face -discoid rash) Neck trachea midline, no thyromegaly Respiratory normal respiratory effort and + cough; no respiratory distress Auscultation: no wheezes Cardiovascular RRR, no murmur, no edema Gastrointestinal (Abdomen) normal bowel sounds, soft, nontender, no hepatosplenomegaly Musculoskeletal no cyanosis or clubbing, extremities motor strength 5/5 Skin no rashes, warm and dry Neurologic PERRL, EOMI, accommodation nl, no face palsy, no dysarthria Psychiatric A+Ox3, euthymic affect Discharge Data Allergies Allergy/AdvReac Type Severity Reaction Status Date / Time lactose AdvReac Gastrointestinal Verified 05/28/19 14:31 Upset Consultations 05/28/19 15:59 ED Decision to Admit Stat 05/29/19 10:25 Consult Nephrology Routine Ordered Studies 06/01/19 09:58 CT chest w con Routine Hospital Course (1) Hyponatremia: HYPONATREMIA: multifactorial ; due to Thiazide diuretics /excess free water /dilutional due to polydipsia Chlorthalidone d/c/ed Na improved from 118 to 124 _> 125 -> 127 Nephro consulted-appreciate input possible underlying SIADH ( urine Osm elevated 331 /S Osm 254 ) cont Fluid restriction 1.5L daily given IV Lasix repeat BMP in afternoon noted Na drop to 121 pt denies of any symptoms of fatigue , dizzy spell pt insists on going home says she has been feeling fine willing for out pt lab check and nephrology follow up ACUTE BRONCHITIS TOBACCO USE, POSSIBLE UNDERLYING COPD EXACERBATION, MILD smokes 1/2 pack per day for 30 yrs cough has improved , no wheeze no fever, no leukocytosis CXR: no pneumonia Influenza test: Negative D/c Droplet precaution CT chest with contrast shows : possible rt middle lobe collapse Ct finding discussed with pulmonology Dr Blandon -does not feel there is underlying mass causing the collapse pt is asymptomatic , no cough , no hypxia recommends clinic follow up in 6 weeks with repeat Cxray pt is counselled repeatedly to quit smoking , high risk for lung malignancy with ongoing smoking pt verbalized understanding , willing to comply CT scan report updated to Patient , understands , willing to follow up with Pulmonology in clinic NO INDICATION FOR COVID -19 test; Per Dr Snell need for testing discussed with Pulmonary Service Dr Blandon , patient found to be low risk for COVID 19 per pulm , testing not indicated cont Doxycycline po bid, Nebs UTI: urine culture E.coli abx changed to Keflex HYPERTENSION continue usual Metoprolol , Quinapril Chlorthalidone D/eric added Amlodipine , dose adjusted to 10 mg daily DISCOID LUPUS not on any medications, refused to take Prednisone due to side effect not following with Rheumatology or Dermatology currently appointment scheduled for Derm and Rheumatology follow up at [facility] DEPRESSION continue Cymbalta DVT Prophylaxis Lovenox SC daily CODE STATUS : full code DISPOSITION; discharged to home Total Time Total Time Spent Total Time Spent (In Minutes): 35 mins Total Time Includes: Examination of the Patient, Discharge Planning and Medication Reconciliation Discharge Plan Discharge Items Patient Disposition: Home - Self-Care Reason For Visit: HYPONATREMIA Discharge Diagnosis: HYPONATREMIA /URINARY TRACT INFECTION /BRONCHITIS /ABNORMAL CT CHEST SCAN Activity: Resume your previous activity Non-emergency contact: Primary Care Provider Call non-emergency contact if: you have any medication questions and your symptoms worsen Follow-up/Referrals: Junior Huff [Other] - 01/18/20 3:30 pm ([facility] - Dermatology [address] [place] [address]) Michael Blandon MD [Physician] - (FOLLOW UP WITH DR BLANDON IN 6 WEEKS , NEED REPEAT CHEST XRAY ) Junior Enriquez MD, PhD [Physician] - (IN 2-3 WEEKS , PLEASE CALL TO SCHEDULE APPOINTMENT ) Endy Thao MD [Physician] - 09/10/19 3:30 pm (PLEASE CALL TO SCHEDULE APPOINTMENT IN 3-4 WEEKS ) Alan Archibald DO [Primary Care Provider] - 06/05/19 10:40 am Diet: Regular Fluids: 1500ml (6 cups) Ambulatory Orders: Basic Metabolic Panel (Routine) Timeframe: [id number] Location: Determined by Patient Ordered By: Marley Green Attending Provider Instructions: LAB WORK : BASIC METABOLIC PANEL ON Tuesday06/04/19 DO NOT TAKE CHLORTHALIDONE NEW BLOOD PRESSURE MEDICATION : NORVASC 10 MG DAILY DO NOT TAKE HIGH DOSE ASPIRIN, ADVIL , ALEVE , NAPROXEN , MOTRIN -FOLLOW UP WITH KIDNEY SPECIALIST /NEPHROLOGY DR JUNIOR ENRIQUEZ IN 2-3 WEEKS - FOR LOW SODIUM LEVEL LIMIT FLUID INTAKE( THAT INCLUDES DAILY WATER , COFFEE, TEA ALL BEVERAGES TO 1500 ML ONLY ) IT IS VERY IMPORTANT FOR YOU TO QUIT SMOKING YOU CT CHEST SCAN SHOWS COLLAPSE OF RIGHT MIDDLE LUNGS AREA NEED TO FOLLOW UP WITH PULMONOLOGY DR BLANDON IN 6 WEEKS AND HAVE A REPEAT CHEST XRAY FOLLOW UP WITH RHEUMATOLOGY AND DERMATOLOGY FOR DISCOID LUPUS DERMATOLOGY : Dr Junior Huff [address] [id number] Phone : ; Pending Studies at Discharge: Yes Studies:: LAB WORK : BASIC METABOLIC PANEL Stand-Alone Forms: [employer], Smoking Cessation Medications and DC Order Prescriptions: New doxycycline hyclate 100 mg Capsule 100 mg PO BID 2 Days Qty: 4 RF: 0 ciprofloxacin HCl 500 mg Tablet 500 mg PO BID 2 Days Qty: 4 RF: 0 amlodipine 10 mg tablet 10 mg PO DAILY Qty: 30 RF: 2 Continued methocarbamol 500 mg tablet 500 mg PO QID PRN (Reason: Muscle Spasm) RF: 0 metoprolol tartrate 25 mg tablet 25 mg PO BID RF: 0 duloxetine 60 mg capsule,delayed release(/EC) 60 mg PO DAILY RF: 0 quinapril 40 mg Tablet 40 mg PO DAILY RF: 0 estradiol 0.01 % (0.1 mg/gram) cream 1 g VAGINAL DAILY RF: 0 cholecalciferol (vitamin D3) [Vitamin D3] 125 mcg (5,000 unit) Tablet 125 mcg PO DAILY RF: 0 Discontinued chlorthalidone 25 mg tablet 25 mg PO DAILY RF: 0 Discharge Orders: Discharge Order (Routine); Ordered 06/01/19 Ordered By: Marley Guardado/Other Patient Handouts: Smoking Quit Plan, Smoking Get Help for Quitting, Staying Smoke Free, Smoking Health Effects, Smoke Free Benefits, Lupus Symptomatic Erythematosus Admission Data Admit Date/Time: 05/28/19 16:31 Attending Provider: Marley Vasquez Admit Provider: Anmol Valle Primary Care Provider: lAan Archibald Other Providers: Anmol Valle ; Junior Enriquez Other Interventions: Discharge Summary Assessment (RN) Last Done: 06/01/19 16:54 DC Date/Time DO NOT enter until pt leaves facility: 06/01/19 18:02
[2019-06-02] MEDS ORDERED: AMLODIPINE BESYLATE 5 MG TAB PO SCH (09:00)
== END 2019-06-01 18:02 | disposition home or self-care (01) | DRG 641 ==
LOC: ED 13:59 → 2S 16:31 → SUATTDRO 16:31 → 2S 16:50 → 2N 05-30 15:54

== ENCOUNTER 2021-07-25 17:01 | Inpatient (IN) ==
--- NOTE | 2021-07-25 18:03 | Emergency Department Note ---
Impression & Plan Acute hyponatremia, Acute hypokalemia, Weakness, Tobacco abuse, Volume overload, Leg swelling, Acute electrocardiogram changes ED Provider Note NAME: KEVEN MULLEN AGE: 66 SEX: F : 1955 ARRIVES VIA: Walk-In INFORMANT: Patient, ED PROVIDER(S): Clarence Leal MD Chief Complaint: Bilateral leg swelling HPI:Patient presents due to concern for bilateral lower extremity swelling which she began to notice on . The patient states that she rested, elevated and tried icing it. Patient also tried walking but this did not seem to improve her symptoms. Patient denies any fevers chills chest pains or shortness of breath. Patient is a chronic smoker and has a known history of COPD. She has [facility]. Patient did try to contact her PCP but presented here she was concerned. Patient was concerned about the possibility of blood clot. Patient denies any nausea vomiting fevers or chills or diarrhea. No known history of heart lung or kidney disease. Patient states her urine output has been normal. Patient is a chronic smoker. No recent prolonged car plane travel patient denies any recent surgeries procedures or hospitalizations. No prior history of DVT. Patient is fairly thin and has been trying to increase her overall p.o. intake and does admit that she may have been increasing her salt. ROS: See HPI for pertinent positives and negatives. A total of 10 systems were reviewed and otherwise negative. Past medical history: See below Surgical history: See below Social history: See below Physical Exam: GENERAL: Thin in appearance, no apparent distress, nontoxic. EYE EXAM: Normal conjunctiva. PERRL, no anisocoria and EOM's grossly intact w/o pain. OROPHARYNX: Moist mucus membranes. False teeth in place. NECK: Supple, no nuchal rigidity, no adenopathy, non-tender. No signs of meningismus. LUNGS: Scant inspiratory and expiratory wheezing present. Normal chest wall mechanics. HEART: NSR, no MRG. ABDOMEN: Abdomen soft, non-tender, normo-active bowel sounds, no masses, no rebound or guarding. BACK: No CVA TTP. SKIN: No rashes and no bruising. UPPER EXTREMITIES: Upper extremities are grossly normal. LOWER EXTREMITIES: Right greater than left lower extremity edema with pitting edema bilaterally, compartments are soft and neurovascular intact distally. NEURO EXAM: A&O x3, cranial nerves II-XII grossly intact, normal speech, moves all 4 extremities on command w/o issue. Differential diagnoses: DVT, musculoskeletal, infection, joint effusion, trauma, lymphedema, idiopathic, CHF, as well as other pathologies. Course: Patient was seen and evaluated the bedside. Full history physical exam was performed. EKG interpreted by me Normal sinus rhythm, rate of 79, normal [place] and QRS, prolonged QTC, normal axis, T wave inversion anteriorly and laterally. Patient's T wave inversions are new from comparison EKG November 10, 2020. Imaging Studies: See Below Cardiac monitoring: An order was placed for continuous cardiac monitoring. The monitor shows a rate of 92 with sinus rhythm. MDM: Patient was seen due to concern for lower extremity swelling. Blood work was obtained along with bilateral lower extremity venous Dopplers. The patient's blood work showed a normal white count with mild anemia hemoglobin of 10. Thrombocytosis noted at 533. The patient's kidney function is unremarkable but the patient does have hyponatremia, hypokalemia. Patient's chest x-ray does show a possible right pleural effusion. DVT ultrasound was negative. The patient does have hypomagnesemia. Patient's troponin is elevated with an elevated BNP. Albumin is slightly low. Patient's EKG does show new T wave inversions from comparison from October 2020 but the patient does not complain of any chest pains or shortness of breath. Given the concomitant picture possible volume overload with no prior history of CHF and EKG changes do believe the patient would benefit from inpatient treatment at this time. I did speak with the on-call hospitalist Dr. Mancilla and the patient was admitted to the medicine service. Past Med/Surg History Medical History Arthritis COPD (chronic obstructive pulmonary disease) Hypertension Lumbar radiculopathy Lupus Tobacco abuse Surgical History History of appendectomy History of hysterectomy Family History Mother Heart disease Father Stomach cancer Other Cancer Diabetes Social History Smoking Status: Current every day smoker Tobacco Type: Cigarettes Cigarettes Per Day: 10; Hx Alcohol Use: Yes Alcohol type: wine Alcohol Intake Frequency Comment: 1-2 glasses of wine, 4 times per week Hx Substance Use: No Preferred Language: [place] Islander Communication Ability: Effective Beliefs That Will Affect Care: Taoist Taoist Beliefs: SIKH Current Living Situation: Spouse Feels Safe at Home: Yes Assistive Devices: None Allergies Allergies Allergy/AdvReac Type Severity Reaction Status Date / Time lactose AdvReac Intermediate Gastrointestinal Verified 07/25/21 20:22 Upset prednisone AdvReac N/V Unverified 07/25/21 20:22 Home Meds Home Medications Medication Instructions Recorded Confirmed metoprolol tartrate 25 mg tablet 25 mg PO BID 05/28/19 07/25/21 amlodipine 5 mg tablet 5 mg PO DAILY 07/25/21 07/25/21 amoxicillin 500 mg capsule 500 mg PO BID 07/25/21 07/25/21 cholecalciferol (vitamin D3) 25 25 mcg PO DAILY 07/25/21 07/25/21 mcg (1,000 unit) tablet Results & Data (ED) Vital Signs Vital Signs - 24 hr 07/25/21 17:05 07/25/21 18:57 07/25/21 19:00 Temperature 36.7 C Temperature Source Temporal Artery Scan Pulse Rate 97 H 79 79 Pulse Rate [Apical] Pulse Rate from SpO2 Sensor 79 80 Pulse Rhythm Pulse Rhythm [Apical] Pulse Strength [Apical] Respiratory Rate 18 28 H 20 Respiratory Effort / Characteristics Non-Labored Respiratory Depth Normal Respiratory Pattern Regular Blood Pressure 153/94 H 116/75 Blood Pressure [Right Arm] Blood Pressure Mean 113 88 Blood Pressure Mean [Right Arm] Blood Pressure Position [Right Arm] Pulse Oximetry 95 95 94 Oxygen Delivery Method Room Air Oxygen Flow Rate Sepsis Recent Fever Within 48 Hours No Sepsis New/Unexplained Change in Mental Status No Sepsis Action Taken by Nursing No Action Required Oxygen Flow Rate - Titration Pulse Oximetry Post Tiitration 07/25/21 19:01 07/25/21 20:01 07/25/21 20:30 Temperature 36.8 C Temperature Source Oral Pulse Rate 73 80 75 Pulse Rate [Apical] 77 Pulse Rate from SpO2 Sensor 75 Pulse Rhythm Regular Pulse Rhythm [Apical] Regular Pulse Strength [Apical] Normal Respiratory Rate 17 24 28 H Respiratory Effort / Characteristics Non-Labored Respiratory Depth Normal Respiratory Pattern Blood Pressure 117/83 Blood Pressure [Right Arm] 116/75 Blood Pressure Mean 94 Blood Pressure Mean [Right Arm] 88 Blood Pressure Position [Right Arm] Semi-fowlers Pulse Oximetry 96 92 Oxygen Delivery Method Room Air Oxygen Flow Rate Sepsis Recent Fever Within 48 Hours Sepsis New/Unexplained Change in Mental Status Sepsis Action Taken by Nursing Oxygen Flow Rate - Titration Pulse Oximetry Post Tiitration 07/25/21 21:00 07/25/21 21:30 07/25/21 22:27 Temperature Temperature Source Pulse Rate 73 70 Pulse Rate [Apical] Pulse Rate from SpO2 Sensor 73 71 66 Pulse Rhythm Pulse Rhythm [Apical] Pulse Strength [Apical] Respiratory Rate 22 24 Respiratory Effort / Characteristics Respiratory Depth Respiratory Pattern Blood Pressure 115/80 102/69 Blood Pressure [Right Arm] Blood Pressure Mean 91 80 Blood Pressure Mean [Right Arm] Blood Pressure Position [Right Arm] Pulse Oximetry 93 90 95 Oxygen Delivery Method Oxygen Flow Rate Sepsis Recent Fever Within 48 Hours Sepsis New/Unexplained Change in Mental Status Sepsis Action Taken by Nursing Oxygen Flow Rate - Titration Pulse Oximetry Post Tiitration 07/25/21 22:30 07/25/21 23:00 07/25/21 23:15 Temperature Temperature Source Pulse Rate 66 62 Pulse Rate [Apical] Pulse Rate from SpO2 Sensor 66 63 Pulse Rhythm Pulse Rhythm [Apical] Pulse Strength [Apical] Respiratory Rate 26 H 16 Respiratory Effort / Characteristics Respiratory Depth Respiratory Pattern Blood Pressure 101/74 101/71 Blood Pressure [Right Arm] Blood Pressure Mean 83 81 Blood Pressure Mean [Right Arm] Blood Pressure Position [Right Arm] Pulse Oximetry 96 92 89 L Oxygen Delivery Method Room Air Nasal Cannula Oxygen Flow Rate Sepsis Recent Fever Within 48 Hours Sepsis New/Unexplained Change in Mental Status Sepsis Action Taken by Nursing Oxygen Flow Rate - Titration 2 Pulse Oximetry Post Tiitration 92 07/25/21 23:31 Temperature Temperature Source Pulse Rate Pulse Rate [Apical] 61 Pulse Rate from SpO2 Sensor Pulse Rhythm Pulse Rhythm [Apical] Pulse Strength [Apical] Respiratory Rate 22 Respiratory Effort / Characteristics Non-Labored Spontaneous Respiratory Depth Normal Respiratory Pattern Blood Pressure Blood Pressure [Right Arm] 107/72 Blood Pressure Mean Blood Pressure Mean [Right Arm] 83 Blood Pressure Position [Right Arm] Sitting Pulse Oximetry 97 Oxygen Delivery Method Nasal Cannula Oxygen Flow Rate 2 Sepsis Recent Fever Within 48 Hours Sepsis New/Unexplained Change in Mental Status Sepsis Action Taken by Nursing Oxygen Flow Rate - Titration Pulse Oximetry Post Tiitration Home Medications Current Medication List: was personally reviewed by vt Laboratory Data Attestation: I reviewed the patient's lab results. Result diagrams: 07/25/21 18:51 07/25/21 18:51 Lab Results 07/25/21 07/25/21 07/25/21 Range/Units 18:51 18:51 18:51 WBC 7.19 (4.8-10.8) K/uL RBC 3.01 L (4.2-5.4) M/uL Hgb 10.6 L (12.0-16.0) g/dL Hct 31.4 L (37-47) % MCV 104.3 H (80-100) fL MCH 35.2 H (25-34) pg MCHC 33.8 (32-36) g/dL RDW Std Deviation 49.2 H (36.4-46.3) fL RDW Coeff of Murtaza 13.1 (11.5-14.5) % Plt Count 533 H (130-400) K/uL MPV 8.1 (7.4-10.4) fL Immature Gran % (Auto) 0.1 % Neut % (Auto) 63.8 % Lymph % (Auto) 27.3 % Wright % (Auto) 7.1 % Eos % (Auto) 1.1 % Baso % (Auto) 0.6 % Neut # (Auto) 4.59 (1.4-6.5) K/uL Lymph # (Auto) 1.96 (1.2-3.4) K/uL Wright # (Auto) 0.51 (0.11-0.59) K/uL Eos # (Auto) 0.08 (0-0.5) K/uL Baso # (Auto) 0.04 (0-0.2) K/uL Immature Gran # (Auto) 0.01 (0.00-0.02) K/uL Sodium 129 L (136-145) mmol/L Potassium 3.0 L (3.5-5.1) mmol/L Chloride 89 L (98-107) mmol/L Carbon Dioxide 34 H (21-32) mmol/L Anion Gap 6 (3-11) BUN 5 L (6-23) mg/dl Creatinine 0.50 L (0.6-1.2) mg/dl Est Cr Clr Drug Dosing 70.9 ml/min Est GFR ( Amer) 118.5 ml/min Est GFR (Non-Af Amer) 102.3 ml/min BUN/Creatinine Ratio 10.0 (10-20) Glucose 94 (70-99(Fasting)) mg/dl Calcium 8.7 (8.5-10.1) mg/dl Magnesium 1.6 L (1.7-2.4) mg/dl Total Bilirubin 0.3 (0.2-1.0) mg/dl AST 26 (13-39) U/L ALT 14 (7-52) U/L Alkaline Phosphatase 65 (34-104) U/L Troponin I High Sens 89.8 H* (0-14) pg/ml B-Natriuretic Peptide 748 H (0-100) pg/ml Total Protein 6.2 (6.0-8.3) gm/dl Albumin 3.3 L (3.4-5.0) gm/dl Globulin 2.9 (2.5-4.0) gm/dl Albumin/Globulin Ratio 1.1 (0.9-2) TSH (0.300-4.500) uIu/ml SARS-CoV-2, RNA, NAAT (NEGATIVE) 07/25/21 07/25/21 Range/Units 18:51 21:08 WBC (4.8-10.8) K/uL RBC (4.2-5.4) M/uL Hgb (12.0-16.0) g/dL Hct (37-47) % MCV (80-100) fL MCH (25-34) pg MCHC (32-36) g/dL RDW Std Deviation (36.4-46.3) fL RDW Coeff of Murtaza (11.5-14.5) % Plt Count (130-400) K/uL MPV (7.4-10.4) fL Immature Gran % (Auto) % Neut % (Auto) % Lymph % (Auto) % Wright % (Auto) % Eos % (Auto) % Baso % (Auto) % Neut # (Auto) (1.4-6.5) K/uL Lymph # (Auto) (1.2-3.4) K/uL Wright # (Auto) (0.11-0.59) K/uL Eos # (Auto) (0-0.5) K/uL Baso # (Auto) (0-0.2) K/uL Immature Gran # (Auto) (0.00-0.02) K/uL Sodium (136-145) mmol/L Potassium (3.5-5.1) mmol/L Chloride (98-107) mmol/L Carbon Dioxide (21-32) mmol/L Anion Gap (3-11) BUN (6-23) mg/dl Creatinine (0.6-1.2) mg/dl Est Cr Clr Drug Dosing ml/min Est GFR ( Amer) ml/min Est GFR (Non-Af Amer) ml/min BUN/Creatinine Ratio (10-20) Glucose (70-99(Fasting)) mg/dl Calcium (8.5-10.1) mg/dl Magnesium (1.7-2.4) mg/dl Total Bilirubin (0.2-1.0) mg/dl AST (13-39) U/L ALT (7-52) U/L Alkaline Phosphatase (34-104) U/L Troponin I High Sens (0-14) pg/ml B-Natriuretic Peptide (0-100) pg/ml Total Protein (6.0-8.3) gm/dl Albumin (3.4-5.0) gm/dl Globulin (2.5-4.0) gm/dl Albumin/Globulin Ratio (0.9-2) TSH 0.999 (0.300-4.500) uIu/ml SARS-CoV-2, RNA, NAAT NEGATIVE (NEGATIVE) Administered Medications Discontinued Medications Acetaminophen (Acetaminophen 500 Mg Tab) 1,000 mg PO NOW STA Stop: 07/25/21 20:44 Last Admin: 07/25/21 21:05 Dose: 1,000 mg Documented by: [id number] Imaging Data Radiologist's Impression: Venous Doppler Study 07/25/21 18:24 US venous doppler LE BI CLINICAL HISTORY: b/l but R>L leg swelling TECHNIQUE: Bilateral lower extremity real-time compression venous ultrasound with Color Doppler imaging. Utilizing real-time ultrasonic imaging multiple real time high-resolution ultrasonic images with compression and noncompression maneuvers of the deep venous system in addition to color doppler imaging were performed from the common femoral vein through the proximal calf veins. COMPARISON: None available at the time of this dictation. FINDINGS: Currently there is normal compressibility of the deep venous system from the common femoral vein through the proximal calf veins. No current evidence of acute thrombosis is identified. A right popliteal fluid collection is seen compatible with Washington's cyst. Impression: No evidence of deep venous thrombus. ACT 112: Negative or not required by law. Electronically signed by: Yosi Sargent M.D. 07/25/2021 7:54 PM Chest X-Ray 07/25/21 18:25 XR chest 1V portable CLINICAL HISTORY: leg swelling TECHNIQUE: Single frontal radiograph of the chest was obtained. Comparison: Comparison is made to chest radiograph of 07/13/2021 FINDINGS: No lines and tubes are seen. Calcified aortic knob is seen. The lungs are clear. Blunting of the right costophrenic angle is seen. IMPRESSION: Blunting of the right costophrenic angle may represent trace pleural effusion. ACT 112: Negative or not required by law. Electronically signed by: Yosi Sargent M.D. 07/25/2021 7:03 PM Discharge Plan Visit Data Chief Complaint: Swelling/Edema to Extremity Stated Complaint: SWOLLEN R LEG Discharge Problem: Acute hyponatremia, Acute hypokalemia, Weakness, Tobacco abuse, Volume overload, Leg swelling, Acute electrocardiogram changes Forms Stand Alone Forms: [employer] Prescriptions Prescriptions: No Action metoprolol tartrate 25 mg tablet 25 mg PO BID RF: 0 amlodipine 5 mg tablet 5 mg PO DAILY RF: 0 amoxicillin 500 mg capsule 500 mg PO BID RF: 0 cholecalciferol (vitamin D3) 25 mcg (1,000 unit) Tablet 25 mcg PO DAILY RF: 0 Referrals Referrals: Alan Archibald DO [Primary Care Provider] -
--- NOTE | 2021-07-25 19:04 | XRay Report ---
XR chest 1V portable CLINICAL HISTORY: leg swelling TECHNIQUE: Single frontal radiograph of the chest was obtained. Comparison: Comparison is made to chest radiograph of 07/13/2021 FINDINGS: No lines and tubes are seen. Calcified aortic knob is seen. The lungs are clear. Blunting of the righ t costophrenic angle is seen. IMPRESSION: Blunting of the right costophrenic angle may represent trace pleural effusion. ACT 112: Negative or not required by law. Electronically signed by: Yosi Sargent M.D. 07/25/2021 7:03 PM
[2021-07-25 19:09] LABS: Basophils # (auto) 0.04 K/uL (0-0.2); Basophils % (auto) 0.6 %; Eosinophils # (auto) 0.08 K/uL (0-0.5); Eosinophils % (auto) 1.1 %; Hematocrit (blood only) 31.4 % (37-47); Hemoglobin 10.6 g/dL (12.0-16.0); Immature Granulocytes # (auto) 0.01 K/uL (0.00-0.02); Immature Granulocytes % (auto) 0.1 %; Lymphocytes # (auto) 1.96 K/uL (1.2-3.4); Lymphocytes % (auto) 27.3 %; Mean Corpuscular Hemoglobin 35.2 pg (25-34); Mean Corpuscular Hgb Conc 33.8 g/dL (32-36); Mean Corpuscular Volume 104.3 fL (80-100); Mean Platelet Volume 8.1 fL (7.4-10.4); Monocytes # (auto) 0.51 K/uL (0.11-0.59); Monocytes % (auto) 7.1 %; Neutrophils # (auto) 4.59 K/uL (1.4-6.5); Neutrophils % (auto) 63.8 %; Platelet Count 533 K/uL (130-400); RDW Coefficient of Variation 13.1 % (11.5-14.5); RDW Standard Deviation 49.2 fL (36.4-46.3); Red Blood Count 3.01 M/uL (4.2-5.4); White Blood Count 7.19 K/uL (4.8-10.8)
[2021-07-25 19:30] LABS: Albumin Globulin Ratio 1.1 (0.9-2); Albumin Level 3.3 gm/dl (3.4-5.0); Bilirubin,Total 0.3 mg/dl (0.2-1.0); Calcium 8.7 mg/dl (8.5-10.1); Creatinine Clr Calc Pharmacy 70.9 ml/min; Est GFR (African American) 118.5 ml/min; Est GFR (Non-African American) 102.3 ml/min; Globulin 2.9 gm/dl (2.5-4.0); Magnesium 1.6 mg/dl (1.7-2.4); Total Protein 6.2 gm/dl (6.0-8.3)
--- NOTE | 2021-07-25 19:56 | Ultrasound Report ---
US venous doppler LE BI CLINICAL HISTORY: b/l but R>L leg swelling TECHNIQUE: Bilateral lower extremity real-time compression venous ultrasound with Color Doppler imagi ng. Utilizing real-time ultrasonic imaging multiple real time high-resolution ultrasonic images with compression and noncompression maneuvers of the deep venous system in addition to color doppler imagi ng were performed from the common femoral vein through the proximal calf veins. COMPARISON: None available at the time of this dictation. FINDINGS: Currently there is normal compressibility of the deep venous system from the common femoral vein thro ugh the proximal calf veins. No current evidence of acute thrombosis is identified. A right popliteal fluid collection is seen compatible with Washington's cyst. Impression: No evidence of deep venous thrombus. ACT 112: Negative or not required by law. Electronically signed by: Yosi Sargent M.D. 07/25/2021 7:54 PM
[2021-07-25] MEDS ORDERED: ACETAMINOPHEN 500 MG TAB PO STA (20:43)
[2021-07-25 21:00] LABS: Troponin I High Sensitivity 89.8 pg/ml (0-14)
[2021-07-26] MEDS ORDERED: LEVALBUTEROL HCL 1.25 MG/3 ML NEB NEB PRN (01:19)
[2021-07-26] MEDS ORDERED: POLYETHYLENE (MIRALAX) 17 GM PACK PO PRN (01:19)
[2021-07-26] MEDS ORDERED: POTASSIUM CHLORIDE CRTAB 20 MEQ TABCR PO STA (01:19)
[2021-07-26] MEDS ORDERED: AMOXICILLIN 500 MG CAP PO STA (01:19)
[2021-07-26] MEDS: ACETAMINOPHEN 325 MG TAB PO PRN ×4 (01:48→22:57)
[2021-07-26] MEDS: MAGNESIUM SULFATE / D5W 1 GM/100 ML BAG IV SCH ×2 (01:52→04:11)
[2021-07-26] MEDS: METOPROLOL TARTRATE 25 MG TAB PO SCH ×3 (02:07→21:29)
[2021-07-26] MEDS ORDERED: COUGH DROP (SUGAR FREE) LOZ 24 LOZ/1 BOX BUCCAL PRN (04:22)
[2021-07-26] MEDS ORDERED: PNEUMOCOCCAL POLYSACCHARIDES 25 MCG/0.5 ML VIAL/SYR IM ONE (04:50)
[2021-07-26 06:13] LABS: Basophils # (auto) 0.04 K/uL (0-0.2); Basophils % (auto) 0.6 %; Eosinophils # (auto) 0.15 K/uL (0-0.5); Eosinophils % (auto) 2.1 %; Hematocrit (blood only) 32.1 % (37-47); Hemoglobin 10.6 g/dL (12.0-16.0); Immature Granulocytes # (auto) 0.02 K/uL (0.00-0.02); Immature Granulocytes % (auto) 0.3 %; Lymphocytes # (auto) 1.75 K/uL (1.2-3.4); Lymphocytes % (auto) 24.2 %; Mean Corpuscular Hemoglobin 34.4 pg (25-34); Mean Corpuscular Volume 104.2 fL (80-100); Monocytes # (auto) 0.51 K/uL (0.11-0.59); Monocytes % (auto) 7.1 %; Neutrophils # (auto) 4.76 K/uL (1.4-6.5); Neutrophils % (auto) 65.7 %; Platelet Count 541 K/uL (130-400); RDW Coefficient of Variation 13.7 % (11.5-14.5); RDW Standard Deviation 50.6 fL (36.4-46.3); Red Blood Count 3.08 M/uL (4.2-5.4); White Blood Count 7.23 K/uL (4.8-10.8)
[2021-07-26] MEDS: HEPARIN SOD 5,000 UNIT/0.5 ML VIAL SQ SCH ×3 (06:14→21:29)
--- NOTE | 2021-07-26 06:18 | History and Physical Report ---
DATE OF ADMISSION: 07/25/2021. CHIEF COMPLAINT: Lower extremity edema, hyponatremia. HISTORY OF PRESENT ILLNESS: This is a 66-year-old female with past medical history significant for SIADH, hyperlipidemia, hypertension, vitamin D deficiency, protein calorie malnutrition, generalized osteoarthritis, discoid lupus, history of tobacco use disorder, protein calorie malnutrition, presents from home with lower extremity edema. The patient says last 2 days she is having lower extremity edema. She is also having back pain and sciatica, going on for some time. She saw also pain management was considered injection of left sacroiliac joint but the patient seems does not want the shot. Denies any chest pain, no shortness of breath. Has some sinusitis and taking antibiotics for that and cough from sinusitis. Occasional sob . No headache, no dizziness, no blurred visions, no earache. No nausea, no abdominal pain. Appetite is okay. No difficulty swallowing. Ambulates okay, afebrile. ALLERGIES: LACTULOSE, PREDNISONE. PAST MEDICAL HISTORY: As mentioned above. PAST SURGICAL HISTORY: Colonoscopy with endoscopic ultrasound, hemorrhoidectomy, partial total hysterectomy. MEDICATIONS: The patient is on amlodipine 5 mg p.o. daily, amoxicillin 500 mg p.o. b.i.d., vitamin D 25 mcg p.o. daily, metoprolol tartrate 25 mg p.o. b.i.d. FAMILY HISTORY: Significant for father had prostate cancer, diabetes, heart disorder, hypertension; mother has hypertension, diabetes. SOCIAL HISTORY: , smokes a quarter pack a day. Alcohol, rarely. No drug use. REVIEW OF SYMPTOMS: As per HPI. Rest of review of systems is negative. PHYSICAL EXAMINATION: GENERAL: The patient is thin and frail, not in acute distress. VITAL SIGNS: Temperature 36.8, pulse 61, respiratory rate 22, blood pressure 107/77, oxygen 97% on 2 liters. HEENT: Pupils equal, round and reactive to light. Oral mucosa moist. LUNGS: No JVD, no neck masses. CARDIOVASCULAR: S1 and S2 heard. Regular rate and rhythm. No murmur, no gallop. RESPIRATORY: Normal AP diameter. No accessory muscle use. Occasional wheezing, no crackles. ABDOMEN: Soft. Bowel sounds are present, nontender, no distention. CENTRAL NERVOUS SYSTEM: Cranial nerves II-XII grossly intact, nonfocal. EXTREMITIES: Bilateral lower extremity pedal edema present, no erythema seen. LABORATORY: WBC 7.1, hemoglobin 10.6, hematocrit 31.4, platelets 533. Sodium 129, potassium 3, chloride 89, bicarb 34, BUN 5, creatinine 0.5, serum glucose 94, calcium 8.7, magnesium 1.6, total bilirubin 0.3, AST 26, ALT 40, alkaline phosphatase 64. Troponin I high sensitivity 89. BNP 748. TSH 0.9. Rapid COVID test negative. IMAGING: Chest x-ray, blunting of right costophrenic may represent trace pleural effusion. Venous Doppler, no DVT. EKG: Normal sinus rhythm, rate of 79, prolonged QTc. ASSESSMENT AND PLAN: This 66-year-old female who presents with lower extremity edema. 1. Lower extremity edema, could be from amlodipine. We will rule out congestive heart failure with echocardiogram. BNP 748. There is some trace pleural effusion on the chest x-ray. We will monitor in [facility]. Consult Cardiology. 2. Mild elevation of troponin. The patient is asymptomatic. We will follow the serial enzymes and echocardiogram. 3. Hypomagnesemia. We will replace. 4. Hyponatremia. Patient has history of syndrome of inappropriate antidiuretic hormone secretion. Fluid restriction to 1500 mL. Follow urine osmolality and serum osmolality, and urine sodium. If any concern, consult Nephrology. 5. Hypokalemia. We will replace. 6. Back pain, Tylenol p.r.n. The patient does not want any narcotics. Recently saw pain management. 7. History of rectal prolapse. Follow up for surgery. 8. Anemia, hemoglobin of 10.6. We will follow stool for Hemoccult, iron studies, vitamin B12, folate levels. 9. Hypertension. Continue amlodipine and metoprolol. 10. Protein calorie malnutrition. Dietitian consult. 11. Deep venous thrombosis prophylaxis. Heparin subcutaneous for now. DISPOSITION: Admit to [facility]. PT/OT prior to discharge. Social Service to help with discharge planning. Level 1 full code. Job ID: [id number] [id number]
[2021-07-26 06:41] LABS: BUN Creatinine Ratio 8.9 (10-20); Creatinine Clr Calc Pharmacy 77.8 ml/min; Est GFR (African American) 122.7 ml/min; Est GFR (Non-African American) 105.9 ml/min; Magnesium 2.4 mg/dl (1.7-2.4); Potassium 3.8 mmol/L (3.5-5.1); Troponin I High Sensitivity 58.8 pg/ml (0-14)
[2021-07-26 06:45] LABS: Iron 54 mcg/dl (35-150); Total Iron Binding Cap Calc 215 mcg/dl (250-450); Transferrin (FE) Percent Satur 25 % (15-50); Unsaturated Iron Binding Cap 161 mcg/dl (155-355)
[2021-07-26 06:50] LABS: Folate (Folic Acid) 8.93 ng/ml (>5.38)
[2021-07-26] MEDS: ALBUTEROL HFA 8 GM INHALER INH SCH ×4 (07:55→19:27)
[2021-07-26] MEDS: IPRATROPIUM BROMIDE HFA INHALER INH SCH ×4 (07:56→19:27)
--- NOTE | 2021-07-26 07:56 | Hospitalist Progress Note ---
Date of Service July 26, 2021 Assessment & Plan Admission and Anticipated Discharge Date Admission Date: July 25, 2021 Subjective Patient is seen in follow-up of lower extremity edema Results & Data Results & Data ([facility]) Vital Signs (Past 12 Hours) Vital Signs Temp Pulse Pulse Pulse Resp BP BP 07/26/21 03:15 36.8 C 60 18 91/62 L 07/26/21 01:15 36.9 C 77 20 120/82 07/26/21 00:59 62 20 106/71 07/25/21 23:31 61 22 07/25/21 23:15 07/25/21 23:00 62 16 101/71 07/25/21 22:30 66 26 H 101/74 07/25/21 22:27 07/25/21 21:30 70 24 102/69 07/25/21 21:00 73 22 115/80 07/25/21 20:30 75 28 H 117/83 07/25/21 20:01 80 24 BP Pulse Ox 07/26/21 03:15 100 07/26/21 01:15 89 L 07/26/21 00:59 92 07/25/21 23:31 107/72 97 07/25/21 23:15 89 L 07/25/21 23:00 92 07/25/21 22:30 96 07/25/21 22:27 95 07/25/21 21:30 90 07/25/21 21:00 93 07/25/21 20:30 92 07/25/21 20:01 Laboratory Results 07/26/21 07/26/21 07/26/21 Range/Units 05:32 05:32 05:32 WBC (4.8-10.8) K/uL RBC (4.2-5.4) M/uL Hgb (12.0-16.0) g/dL Hct (37-47) % MCV (80-100) fL MCH (25-34) pg MCHC (32-36) g/dL RDW Std Deviation (36.4-46.3) fL RDW Coeff of Murtaza (11.5-14.5) % Plt Count (130-400) K/uL MPV (7.4-10.4) fL Immature Gran % (Auto) % Neut % (Auto) % Lymph % (Auto) % [place]verse % (Auto) % Eos % (Auto) % Baso % (Auto) % Neut # (Auto) (1.4-6.5) K/uL Lymph # (Auto) (1.2-3.4) K/uL Traverse # (Auto) (0.11-0.59) K/uL Eos # (Auto) (0-0.5) K/uL Baso # (Auto) (0-0.2) K/uL Immature Gran # (Auto) (0.00-0.02) K/uL Sodium (136-145) mmol/L Potassium (3.5-5.1) mmol/L Chloride (98-107) mmol/L Carbon Dioxide (21-32) mmol/L Anion Gap (3-11) BUN (6-23) mg/dl Creatinine (0.6-1.2) mg/dl Est Cr Clr Drug Dosing ml/min Est GFR ( Amer) ml/min Est GFR (Non-Af Amer) ml/min BUN/Creatinine Ratio (10-20) Glucose (70-99(Fasting)) mg/dl Osmolality 268 L (280-300) mOsm/kg Calcium (8.5-10.1) mg/dl Magnesium (1.7-2.4) mg/dl Iron 54 (35-150) mcg/dl TIBC 215 L (250-450) mcg/dl Unsaturated IBC 161 (155-355) mcg/dl Transferrin % Sat 25 (15-50) % Total Bilirubin (0.2-1.0) mg/dl AST (13-39) U/L ALT (7-52) U/L Alkaline Phosphatase (34-104) U/L Troponin I High Sens (0-14) pg/ml B-Natriuretic Peptide (0-100) pg/ml Total Protein (6.0-8.3) gm/dl Albumin (3.4-5.0) gm/dl Globulin (2.5-4.0) gm/dl Albumin/Globulin Ratio (0.9-2) Vitamin B12 222 (180-914) pg/ml Folate 8.93 (>5.38) ng/ml TSH (0.300-4.500) uIu/ml Urine Osmolality (500-800) mOsm/kg Ur Random Sodium mmol/L SARS-CoV-2, RNA, NAAT (NEGATIVE) 07/26/21 07/26/21 07/26/21 Range/Units 05:32 05:32 02:50 WBC 7.23 (4.8-10.8) K/uL RBC 3.08 L (4.2-5.4) M/uL Hgb 10.6 L (12.0-16.0) g/dL Hct 32.1 L (37-47) % MCV 104.2 H (80-100) fL MCH 34.4 H (25-34) pg MCHC 33.0 (32-36) g/dL RDW Std Deviation 50.6 H (36.4-46.3) fL RDW Coeff of Murtaza 13.7 (11.5-14.5) % Plt Count 541 H (130-400) K/uL MPV 8.0 (7.4-10.4) fL Immature Gran % (Auto) 0.3 % Neut % (Auto) 65.7 % Lymph % (Auto) 24.2 % Traverse % (Auto) 7.1 % Eos % (Auto) 2.1 % Baso % (Auto) 0.6 % Neut # (Auto) 4.76 (1.4-6.5) K/uL Lymph # (Auto) 1.75 (1.2-3.4) K/uL Traverse # (Auto) 0.51 (0.11-0.59) K/uL Eos # (Auto) 0.15 (0-0.5) K/uL Baso # (Auto) 0.04 (0-0.2) K/uL Immature Gran # (Auto) 0.02 (0.00-0.02) K/uL Sodium 131 L (136-145) mmol/L Potassium 3.8 D (3.5-5.1) mmol/L Chloride 94 L (98-107) mmol/L Carbon Dioxide 34 H (21-32) mmol/L Anion Gap 3 (3-11) BUN 4 L (6-23) mg/dl Creatinine 0.45 L (0.6-1.2) mg/dl Est Cr Clr Drug Dosing 77.8 ml/min Est GFR ( Amer) 122.7 ml/min Est GFR (Non-Af Amer) 105.9 ml/min BUN/Creatinine Ratio 8.9 L (10-20) Glucose 82 (70-99(Fasting)) mg/dl Osmolality (280-300) mOsm/kg Calcium 8.0 L (8.5-10.1) mg/dl Magnesium 2.4 (1.7-2.4) mg/dl Iron (35-150) mcg/dl TIBC (250-450) mcg/dl Unsaturated IBC (155-355) mcg/dl Transferrin % Sat (15-50) % Total Bilirubin (0.2-1.0) mg/dl AST (13-39) U/L ALT (7-52) U/L Alkaline Phosphatase (34-104) U/L Troponin I High Sens 58.8 H* D (0-14) pg/ml B-Natriuretic Peptide (0-100) pg/ml Total Protein (6.0-8.3) gm/dl Albumin (3.4-5.0) gm/dl Globulin (2.5-4.0) gm/dl Albumin/Globulin Ratio (0.9-2) Vitamin B12 (180-914) pg/ml Folate (>5.38) ng/ml TSH (0.300-4.500) uIu/ml Urine Osmolality 143 L (500-800) mOsm/kg Ur Random Sodium mmol/L SARS-CoV-2, RNA, NAAT (NEGATIVE) 07/26/21 07/25/21 07/25/21 Range/Units 02:50 21:08 18:51 WBC (4.8-10.8) K/uL RBC (4.2-5.4) M/uL Hgb (12.0-16.0) g/dL Hct (37-47) % MCV (80-100) fL MCH (25-34) pg MCHC (32-36) g/dL RDW Std Deviation (36.4-46.3) fL RDW Coeff of Murtaza (11.5-14.5) % Plt Count (130-400) K/uL MPV (7.4-10.4) fL Immature Gran % (Auto) % Neut % (Auto) % Lymph % (Auto) % [place]verse % (Auto) % Eos % (Auto) % Baso % (Auto) % Neut # (Auto) (1.4-6.5) K/uL Lymph # (Auto) (1.2-3.4) K/uL Traverse # (Auto) (0.11-0.59) K/uL Eos # (Auto) (0-0.5) K/uL Baso # (Auto) (0-0.2) K/uL Immature Gran # (Auto) (0.00-0.02) K/uL Sodium (136-145) mmol/L Potassium (3.5-5.1) mmol/L Chloride (98-107) mmol/L Carbon Dioxide (21-32) mmol/L Anion Gap (3-11) BUN (6-23) mg/dl Creatinine (0.6-1.2) mg/dl Est Cr Clr Drug Dosing ml/min Est GFR ( Amer) ml/min Est GFR (Non-Af Amer) ml/min BUN/Creatinine Ratio (10-20) Glucose (70-99(Fasting)) mg/dl Osmolality (280-300) mOsm/kg Calcium (8.5-10.1) mg/dl Magnesium (1.7-2.4) mg/dl Iron (35-150) mcg/dl TIBC (250-450) mcg/dl Unsaturated IBC (155-355) mcg/dl Transferrin % Sat (15-50) % Total Bilirubin (0.2-1.0) mg/dl AST (13-39) U/L ALT (7-52) U/L Alkaline Phosphatase (34-104) U/L Troponin I High Sens (0-14) pg/ml B-Natriuretic Peptide (0-100) pg/ml Total Protein (6.0-8.3) gm/dl Albumin (3.4-5.0) gm/dl Globulin (2.5-4.0) gm/dl Albumin/Globulin Ratio (0.9-2) Vitamin B12 (180-914) pg/ml Folate (>5.38) ng/ml TSH 0.999 (0.300-4.500) uIu/ml Urine Osmolality (500-800) mOsm/kg Ur Random Sodium 27 mmol/L SARS-CoV-2, RNA, NAAT NEGATIVE (NEGATIVE) 07/25/21 07/25/21 07/25/21 Range/Units 18:51 18:51 18:51 WBC 7.19 (4.8-10.8) K/uL RBC 3.01 L (4.2-5.4) M/uL Hgb 10.6 L (12.0-16.0) g/dL Hct 31.4 L (37-47) % MCV 104.3 H (80-100) fL MCH 35.2 H (25-34) pg MCHC 33.8 (32-36) g/dL RDW Std Deviation 49.2 H (36.4-46.3) fL RDW Coeff of Murtaza 13.1 (11.5-14.5) % Plt Count 533 H (130-400) K/uL MPV 8.1 (7.4-10.4) fL Immature Gran % (Auto) 0.1 % Neut % (Auto) 63.8 % Lymph % (Auto) 27.3 % Traverse % (Auto) 7.1 % Eos % (Auto) 1.1 % Baso % (Auto) 0.6 % Neut # (Auto) 4.59 (1.4-6.5) K/uL Lymph # (Auto) 1.96 (1.2-3.4) K/uL Traverse # (Auto) 0.51 (0.11-0.59) K/uL Eos # (Auto) 0.08 (0-0.5) K/uL Baso # (Auto) 0.04 (0-0.2) K/uL Immature Gran # (Auto) 0.01 (0.00-0.02) K/uL Sodium 129 L (136-145) mmol/L Potassium 3.0 L (3.5-5.1) mmol/L Chloride 89 L (98-107) mmol/L Carbon Dioxide 34 H (21-32) mmol/L Anion Gap 6 (3-11) BUN 5 L (6-23) mg/dl Creatinine 0.50 L (0.6-1.2) mg/dl Est Cr Clr Drug Dosing 70.9 ml/min Est GFR ( Amer) 118.5 ml/min Est GFR (Non-Af Amer) 102.3 ml/min BUN/Creatinine Ratio 10.0 (10-20) Glucose 94 (70-99(Fasting)) mg/dl Osmolality (280-300) mOsm/kg Calcium 8.7 (8.5-10.1) mg/dl Magnesium 1.6 L (1.7-2.4) mg/dl Iron (35-150) mcg/dl TIBC (250-450) mcg/dl Unsaturated IBC (155-355) mcg/dl Transferrin % Sat (15-50) % Total Bilirubin 0.3 (0.2-1.0) mg/dl AST 26 (13-39) U/L ALT 14 (7-52) U/L Alkaline Phosphatase 65 (34-104) U/L Troponin I High Sens 89.8 H* (0-14) pg/ml B-Natriuretic Peptide 748 H (0-100) pg/ml Total Protein 6.2 (6.0-8.3) gm/dl Albumin 3.3 L (3.4-5.0) gm/dl Globulin 2.9 (2.5-4.0) gm/dl Albumin/Globulin Ratio 1.1 (0.9-2) Vitamin B12 (180-914) pg/ml Folate (>5.38) ng/ml TSH (0.300-4.500) uIu/ml Urine Osmolality (500-800) mOsm/kg Ur Random Sodium mmol/L SARS-CoV-2, RNA, NAAT (NEGATIVE) Medications Administered Current Inpatient Medications Acetaminophen (Acetaminophen 325 Mg Tab) 650 mg PO Q4H PRN PRN Reason: Pain or Fever Stop: 08/25/21 01:18 Last Admin: 07/26/21 01:48 Dose: 650 mg Documented by: Albuterol (Albuterol Hfa 8 Gm Inhaler) 1 puffs INH QIDR PEDRO Stop: 08/25/21 06:59 Last Admin: 07/26/21 07:55 Dose: 1 puffs Documented by: Amlodipine Besylate (Amlodipine Besylate 5 Mg Tab) 5 mg PO DAILY PEDRO Stop: 08/25/21 08:59 Amoxicillin (Amoxicillin 500 Mg Cap) 500 mg PO BID PEDRO Stop: 08/05/21 08:59 Heparin Sodium (Porcine) (Heparin Sod 5,000 Unit/0.5 Ml Vial) 5,000 units SQ Q8 PEDRO Stop: 08/25/21 05:59 Last Admin: 07/26/21 06:14 Dose: 5,000 units Documented by: Ipratropium [place] (Ipratropium [place] Hfa Inhaler) 1 puffs INH QIDR PEDRO Stop: 08/25/21 06:59 Last Admin: 07/26/21 07:56 Dose: 1 puffs Documented by: Levalbuterol HCl (Levalbuterol Hcl 1.25 Mg/3 Ml Neb) 1.25 mg NEB Q4H PRN; Protocol PRN Reason: Shortness Of Breath Or Wheezing Stop: 08/25/21 01:18 Menthol (Cough Drop (Sugar Free) Digna 24 Digna/1 Box) 1 digna BUCCAL TID PRN PRN Reason: Sore Throat Stop: 08/25/21 04:21 Last Admin: 07/26/21 04:58 Dose: 1 digna Documented by: Metoprolol Tartrate (Metoprolol Tartrate 25 Mg Tab) 25 mg PO BID PEDRO Stop: 08/25/21 01:18 Last Admin: 07/26/21 02:07 Dose: 25 mg Documented by: Polyethylene Glycol (Polyethylene (Miralax) 17 Gm Pack) 17 gm PO DAILY PRN PRN Reason: Constipation Stop: 08/25/21 01:18 Vitamin D (Cholecalciferol 1,000 Units 25 Mcg Tab) 1,000 units PO DAILY PEDRO Stop: 08/25/21 08:59
[2021-07-26] MEDS: CHOLECALCIFEROL 1,000 UNITS 25 MCG TAB PO SCH (08:45)
[2021-07-26] MEDS: AMOXICILLIN 500 MG CAP PO SCH ×2 (08:45→21:28)
[2021-07-26] MEDS ORDERED: amLODIPine BESYLATE 5 MG TAB PO SCH (09:00)
[2021-07-26] MEDS ORDERED: IPRATROPIUM BROMIDE/ALBUTEROL respimat INH INH SCH (09:00)
[2021-07-26] MEDS ORDERED: FUROSEMIDE INJ 20 MG/2 ML VIAL IV ONE (11:04)
--- NOTE | 2021-07-26 12:23 | Electrocardiogram Report ---
Test Reason : Blood Pressure : / mmHG Vent. Rate : 079 BPM Atrial Rate : 079 BPM P-R Int : 160 ms QRS Dur : 078 ms QT Int : 468 ms P-R-T Axes : 080 037 167 degrees QTc Int : 536 ms Normal sinus rhythm Possible Left atrial enlargement T wave abnormality, consider inferior ischemia T wave abnormality, consider anterolateral ischemia Prolonged QT Abnormal ECG When compared with ECG of 10-NOV-2020 22:05, Premature atrial complexes are no longer Present T wave inversion now evident in Inferior leads T wave inversion now evident in Anterolateral leads Confirmed by Gildardo Logan ([id number]) on 07/26/2021 12:23:02 PM Referred By: REFERRED SELF Confirmed By:Mushtaq Logan
--- NOTE | 2021-07-26 12:29 | Electrocardiogram Report ---
Test Reason : Blood Pressure : / mmHG Vent. Rate : 066 BPM Atrial Rate : 066 BPM P-R Int : 160 ms QRS Dur : 072 ms QT Int : 486 ms P-R-T Axes : 087 069 130 degrees QTc Int : 509 ms Poor data quality, interpretation may be adversely affected Normal sinus rhythm Prolonged QT Abnormal ECG When compared with ECG of 25-JUL-2021 18:38, (unconfirmed) No significant change was found Confirmed by Gildardo Logan ([id number]) on 07/26/2021 12:28:39 PM Referred By: REFERRED SELF Confirmed By:Mushtaq Logan
--- NOTE | 2021-07-26 13:29 | Cardiology Consultation ---
Date of Consultation July 26, 2021 Assessment & Plan (1) Volume overload: (2) Leg swelling: (3) COPD (chronic obstructive pulmonary disease): (4) Acute electrocardiogram changes: (5) Tobacco abuse: (6) Lupus: I think the patient's lower extremity edema is multifactorial including COPD and dietary indiscretion along with pulmonary hypertension. I agree with gentle diuresis. The EKG is concerning for new symmetrical T wave inversion across the precordium unchanged on 2 EKGs this hospital admission. The EKG changes were not present in 2019. At first I thought this was due to an apical hypertrophic cardiomyopathy but her echocardiogram shows normal LV wall thickness and systolic function without wall motion abnormalities that would suggest ischemic heart disease. The diagnosis of pulmonary hypertension is based on tricuspid regurgitation with the right cardiac chambers being normal in size and right ventricular systolic function is also normal. She has significant other medical problems which should be addressed. I would consider having a gauntlet pairer see her while she is in the hospital for a low sodium diet and also because of her history of protein malnutrition. History of Present Illness Attending Physician: Rashawn Lopes MD History of Present Illness This is a 66-year-old female with a history of discoid lupus, protein calorie malnutrition and active smoker. She states that 1 to 2 days prior to admission she went to [facility] where she had a meal. She is not used of that much salt in her diet. Soon afterwards she developed lower extremity edema which brought her to the emergency department. She denies active chest pain or progressive shortness of breath. She denies hemoptysis. She has had no heart palpitations or tachycardia. She has no prior history of heart disease and denies myocardial infarction, angina, congestive heart failure or cardiac arrhythmias. She has had no dizziness or lightheadedness. Her high-sensitivity troponins are borderline elevated. Her EKG this admission shows new symmetrical T wave inversion across the precordium. An echocardiogram this admission shows normal LV and RV systolic function without wall motion abnormalities. No significant valvular disease except for moderate tricuspid regurgitation and a calculated pulmonary systolic pressure of around 50 mmHg. We have been asked to see her in regard to the pulmonary hypertension. Past medical history: Discoid lupus SIADH (syndrome of inappropriate ADH production) (HCC) HTN, goal below 130/80 Tobacco use disorder Benign neoplasm of colon Dyslipidemia Generalized osteoarthritis Vitamin D deficiency BMI less than 19,adult Vaginal atrophy Hyponatremia Protein-calorie malnutrition (HCC) Allergies Allergy/AdvReac Type Severity Reaction Status Date / Time lactose AdvReac Intermediate Gastrointestinal Verified 07/25/21 20:22 Upset caffeine AdvReac Verified 07/26/21 14:13 prednisone AdvReac N/V Unverified 07/25/21 20:22 Home Medications Medication Instructions Recorded Confirmed Type metoprolol tartrate 25 mg tablet 25 mg PO BID 05/28/19 07/25/21 History amlodipine 5 mg tablet 5 mg PO DAILY 07/25/21 07/25/21 History amoxicillin 500 mg capsule 500 mg PO BID 07/25/21 07/25/21 History cholecalciferol (vitamin D3) 25 25 mcg PO DAILY 07/25/21 07/25/21 History mcg (1,000 unit) tablet Patient History Medical History Arthritis COPD (chronic obstructive pulmonary disease) Hypertension Lumbar radiculopathy Lupus Tobacco abuse Surgical History History of appendectomy History of hysterectomy Family History Mother Heart disease Father Stomach cancer Other Cancer Diabetes Social History Smoking Status: Current every day smoker Tobacco Type: Cigarettes Cigarettes Per Day: 10; Hx Alcohol Use: No Hx Substance Use: No Preferred Language: Armenian Communication Ability: Effective [employer] Bus [employer] Required: No Beliefs That Will Affect Care: None marital status: Current Living Situation: Spouse Other Information That Helps Us Care for You: No Feels Safe at Home: Yes Safety Concerns: Feels Safe At This Time Assistive Devices: None Review of Systems Review of Systems: Review of Systems: See HPI for pertinent positives. All other 10 point review of systems are negative. Physical Exam Physical Exam: General: no acute distress and stated age Head: normocephalic, no masses, lesions, tenderness or abnormalities Eyes: conjunctiva are pink and non-injected, sclera clear Neck: supple, no adenopathy, no bruits, normal jugular venous pulse, no hepatojugular reflux Chest: normal shape and normal respiratory effort Lungs: clear to auscultation and percussion Cardiac Exam: - regular rate & rhythm, no murmurs gallops or rubs - normal S1, normal S2 Pulses: 2(+) throughout Abdomen: abdomen soft, non-tender, no abnormal masses and no hepatosplenomegaly Musculoskeletal: no gait disturbance, no joint inflammation, no deforming arthritis Extremities: Mild edema around the ankles and calfs however, the patient does have very thin legs. Neuro: grossly normal exam Results & Data ([facility]) Vital Signs (Past 12 Hours) Vital Signs Temp Pulse Pulse Resp BP Pulse Ox 07/26/21 09:00 69 07/26/21 08:10 36.7 C 67 17 106/69 98 07/26/21 07:59 81 18 96 07/26/21 03:15 36.8 C 60 18 91/62 L 100 Laboratory Results Laboratory Results - last 24 hr 07/25/21 07/25/21 07/25/21 18:51 18:51 18:51 WBC 7.19 RBC 3.01 L Hgb 10.6 L Hct 31.4 L MCV 104.3 H MCH 35.2 H MCHC 33.8 RDW Std Deviation 49.2 H RDW Coeff of Murtaza 13.1 Plt Count 533 H MPV 8.1 Immature Gran % (Auto) 0.1 Neut % (Auto) 63.8 Lymph % (Auto) 27.3 Carbon % (Auto) 7.1 Eos % (Auto) 1.1 Baso % (Auto) 0.6 Neut # (Auto) 4.59 Lymph # (Auto) 1.96 Carbon # (Auto) 0.51 Eos # (Auto) 0.08 Baso # (Auto) 0.04 Immature Gran # (Auto) 0.01 Sodium 129 L Potassium 3.0 L Chloride 89 L Carbon Dioxide 34 H Anion Gap 6 BUN 5 L Creatinine 0.50 L Est Cr Clr Drug Dosing 70.9 Est GFR ( Amer) 118.5 Est GFR (Non-Af Amer) 102.3 BUN/Creatinine Ratio 10.0 Glucose 94 Osmolality Calcium 8.7 Magnesium 1.6 L Iron TIBC Unsaturated IBC Transferrin % Sat Total Bilirubin 0.3 AST 26 ALT 14 Alkaline Phosphatase 65 Troponin I High Sens 89.8 H* B-Natriuretic Peptide 748 H Total Protein 6.2 Albumin 3.3 L Globulin 2.9 Albumin/Globulin Ratio 1.1 Vitamin B12 Folate TSH Urine Osmolality Ur Random Sodium SARS-CoV-2, RNA, NAAT 07/25/21 07/25/21 07/26/21 18:51 21:08 02:50 WBC RBC Hgb Hct MCV MCH MCHC RDW Std Deviation RDW Coeff of Murtaza Plt Count MPV Immature Gran % (Auto) Neut % (Auto) Lymph % (Auto) Carbon % (Auto) Eos % (Auto) Baso % (Auto) Neut # (Auto) Lymph # (Auto) Carbon # (Auto) Eos # (Auto) Baso # (Auto) Immature Gran # (Auto) Sodium Potassium Chloride Carbon Dioxide Anion Gap BUN Creatinine Est Cr Clr Drug Dosing Est GFR ( Amer) Est GFR (Non-Af Amer) BUN/Creatinine Ratio Glucose Osmolality Calcium Magnesium Iron TIBC Unsaturated IBC Transferrin % Sat Total Bilirubin AST ALT Alkaline Phosphatase Troponin I High Sens B-Natriuretic Peptide Total Protein Albumin Globulin Albumin/Globulin Ratio Vitamin B12 Folate TSH 0.999 Urine Osmolality Ur Random Sodium 27 SARS-CoV-2, RNA, NAAT NEGATIVE 07/26/21 07/26/21 07/26/21 02:50 05:32 05:32 WBC 7.23 RBC 3.08 L Hgb 10.6 L Hct 32.1 L MCV 104.2 H MCH 34.4 H MCHC 33.0 RDW Std Deviation 50.6 H RDW Coeff of Murtaza 13.7 Plt Count 541 H MPV 8.0 Immature Gran % (Auto) 0.3 Neut % (Auto) 65.7 Lymph % (Auto) 24.2 Carbon % (Auto) 7.1 Eos % (Auto) 2.1 Baso % (Auto) 0.6 Neut # (Auto) 4.76 Lymph # (Auto) 1.75 Carbon # (Auto) 0.51 Eos # (Auto) 0.15 Baso # (Auto) 0.04 Immature Gran # (Auto) 0.02 Sodium 131 L Potassium 3.8 D Chloride 94 L Carbon Dioxide 34 H Anion Gap 3 BUN 4 L Creatinine 0.45 L Est Cr Clr Drug Dosing 77.8 Est GFR ( Amer) 122.7 Est GFR (Non-Af Amer) 105.9 BUN/Creatinine Ratio 8.9 L Glucose 82 Osmolality Calcium 8.0 L Magnesium 2.4 Iron TIBC Unsaturated IBC Transferrin % Sat Total Bilirubin AST ALT Alkaline Phosphatase Troponin I High Sens 58.8 H* D B-Natriuretic Peptide Total Protein Albumin Globulin Albumin/Globulin Ratio Vitamin B12 Folate TSH Urine Osmolality 143 L Ur Random Sodium SARS-CoV-2, RNA, NAAT 07/26/21 07/26/21 07/26/21 05:32 05:32 05:32 WBC RBC Hgb Hct MCV MCH MCHC RDW Std Deviation RDW Coeff of Murtaza Plt Count MPV Immature Gran % (Auto) Neut % (Auto) Lymph % (Auto) Carbon % (Auto) Eos % (Auto) Baso % (Auto) Neut # (Auto) Lymph # (Auto) Carbon # (Auto) Eos # (Auto) Baso # (Auto) Immature Gran # (Auto) Sodium Potassium Chloride Carbon Dioxide Anion Gap BUN Creatinine Est Cr Clr Drug Dosing Est GFR ( Amer) Est GFR (Non-Af Amer) BUN/Creatinine Ratio Glucose Osmolality 268 L Calcium Magnesium Iron 54 TIBC 215 L Unsaturated IBC 161 Transferrin % Sat 25 Total Bilirubin AST ALT Alkaline Phosphatase Troponin I High Sens B-Natriuretic Peptide Total Protein Albumin Globulin Albumin/Globulin Ratio Vitamin B12 222 Folate 8.93 TSH Urine Osmolality Ur Random Sodium SARS-CoV-2, RNA, NAAT 07/26/21 12:22 WBC RBC Hgb Hct MCV MCH MCHC RDW Std Deviation RDW Coeff of Murtaza Plt Count MPV Immature Gran % (Auto) Neut % (Auto) Lymph % (Auto) Carbon % (Auto) Eos % (Auto) Baso % (Auto) Neut # (Auto) Lymph # (Auto) Carbon # (Auto) Eos # (Auto) Baso # (Auto) Immature Gran # (Auto) Sodium Potassium Chloride Carbon Dioxide Anion Gap BUN Creatinine Est Cr Clr Drug Dosing Est GFR ( Amer) Est GFR (Non-Af Amer) BUN/Creatinine Ratio Glucose Osmolality Calcium Magnesium Iron TIBC Unsaturated IBC Transferrin % Sat Total Bilirubin AST ALT Alkaline Phosphatase Troponin I High Sens 38.0 H D B-Natriuretic Peptide Total Protein Albumin Globulin Albumin/Globulin Ratio Vitamin B12 Folate TSH Urine Osmolality Ur Random Sodium SARS-CoV-2, RNA, NAAT Medications Administered Current Inpatient Medications Acetaminophen (Acetaminophen 325 Mg Tab) 650 mg PO Q4H PRN PRN Reason: Pain or Fever Stop: 08/25/21 01:18 Last Admin: 07/26/21 09:16 Dose: 650 mg Documented by: Albuterol (Albuterol Hfa 8 Gm Inhaler) 1 puffs INH QIDR PEDRO Stop: 08/25/21 06:59 Last Admin: 07/26/21 10:58 Dose: Not Given Documented by: Amoxicillin (Amoxicillin 500 Mg Cap) 500 mg PO BID PEDRO Stop: 08/05/21 08:59 Last Admin: 07/26/21 08:45 Dose: 500 mg Documented by: Furosemide (Furosemide 20 Mg Tab) 20 mg PO QAM [facility] Stop: 08/26/21 08:59 Heparin Sodium (Porcine) (Heparin Sod 5,000 Unit/0.5 Ml Vial) 5,000 units SQ Q8 PEDRO Stop: 08/25/21 05:59 Last Admin: 07/26/21 14:51 Dose: 5,000 units Documented by: Ipratropium [place] (Ipratropium [place] Hfa Inhaler) 1 puffs INH QIDR [facility] Stop: 08/25/21 06:59 Last Admin: 07/26/21 10:58 Dose: Not Given Documented by: Levalbuterol HCl (Levalbuterol Hcl 1.25 Mg/3 Ml Neb) 1.25 mg NEB Q4H PRN; Protocol PRN Reason: Shortness Of Breath Or Wheezing Stop: 08/25/21 01:18 Menthol (Cough Drop (Sugar Free) Digna 24 Digna/1 Box) 1 digna BUCCAL TID PRN PRN Reason: Sore Throat Stop: 08/25/21 04:21 Last Admin: 07/26/21 04:58 Dose: 1 digna Documented by: Metoprolol Tartrate (Metoprolol Tartrate 25 Mg Tab) 25 mg PO BID [facility] Stop: 08/25/21 01:18 Last Admin: 07/26/21 08:45 Dose: 25 mg Documented by: Polyethylene Glycol (Polyethylene (Miralax) 17 Gm Pack) 17 gm PO DAILY PRN PRN Reason: Constipation Stop: 08/25/21 01:18 Vitamin D (Cholecalciferol 1,000 Units 25 Mcg Tab) 1,000 units PO DAILY PEDRO Stop: 08/25/21 08:59 Last Admin: 07/26/21 08:45 Dose: 1,000 units Documented by: (1) Volume overload Hypervolemia type: unspecified Qualified Code(s): E87.70 - Fluid overload, unspecified
--- NOTE | 2021-07-26 15:33 | Hospitalist Progress Note ---
Date of Service July 26, 2021 Assessment & Plan (1) Leg swelling: Plan: Patient is a 66 yr female who presents with lower extremity edema. Lower extremity edema Likely multifactorial: Amlodipine, malnutrition, pulmonary hypertension --Venous Doppler:No evidence of deep venous thrombus. --ECHO: EF 55 to 60%. Left ventricle is normal in size. The right ventricle systolic function is normal. Left atrium size is normal. Right atrium size is normal. Aortic valve sclerosis, mild without significant stenosis. Moderate tricuspid regurgitation. Moderate pulmonary hypertension. Amlodipine discontinued Dietitian consulted to help with nutrition Started on low-dose Lasix Appreciate cardiology input Mild elevation of troponin T wave changes on EKG No wall motion abnormality on echo Patient denies any chest pain Troponin levels trended down Hypomagnesemia Hypokalemia Replace as needed Chronic Hyponatremia H/O SIADH Normal TSH Sodium 131 Continue fluid restriction Monitor Chronic Lumbago MRI Lumbar Spine 07/13/21:Minimal degenerative change without significant canal or foraminal stenosis. No abnormal enhancing lesion seen Pain control PT OT Rectal prolapse Follow up with surgery as outpatient Macrocytic anemia Normal folate, vitamin B12, Iron Panel No obvious source of bleeding Check FOBT Monitor CBC Hypertension Continue amlodipine and metoprolol Severe Protein calorie malnutrition BMI:16 Dietitian consult. 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 Admission and Anticipated Discharge Date Admission Date: July 25, 2021 Subjective Patient is seen and examined at bedside States having chronic sciatic pain Also reports worsening leg edema Denies any chest pain, shortness of breath, dizziness, nausea, abdominal pain Offers no other complaints Discussed with cardiology today Review of Systems Review of Systems: All systems reviewed & are unremarkable except as noted in Subjective Physical Exam Physical Exam: Physical Exam: Vitals signs as noted above General Appearance: Thin, frail, chronically appearing, no apparent distress Head: normocephalic, Atraumatic Eyes: normal inspection, EOMI Neck: supple, Trachea midline Respiratory/Chest: Decreased breath sounds, CTA, No accessory muscle use Cardiovascular: S1, S2, No murmur Abdomen/GI:Soft, Non tender, Bowel sounds present Extremities/Musculoskeletal:normal inspection, 2+ B/L LE edema Neurologic/Psych:AAOX3, grossly no focal neurological deficits Skin: normal color, warm Results & Data Results & Data ([facility]) Vital Signs (Past 12 Hours) Vital Signs Temp Pulse Pulse Resp BP Pulse Ox 07/26/21 15:02 65 18 91 07/26/21 09:00 69 07/26/21 08:10 36.7 C 67 17 106/69 98 07/26/21 07:59 81 18 96 Laboratory Results Short CBC 07/25/21 07/25/21 07/26/21 Range/Units 18:51 18:51 05:32 WBC 7.19 7.23 (4.8-10.8) K/uL Hgb 10.6 L 10.6 L (12.0-16.0) g/dL Hct 31.4 L 32.1 L (37-47) % Plt Count 533 H 541 H (130-400) K/uL Albumin 3.3 L (3.4-5.0) gm/dl BMP 07/25/21 07/26/21 18:51 05:32 Sodium 129 L 131 L Potassium 3.0 L 3.8 D Chloride 89 L 94 L Carbon Dioxide 34 H 34 H BUN 5 L 4 L Creatinine 0.50 L 0.45 L Glucose 94 82 Calcium 8.7 8.0 L Liver Function 07/25/21 Range/Units 18:51 Total Bilirubin 0.3 (0.2-1.0) mg/dl AST 26 (13-39) U/L ALT 14 (7-52) U/L Alkaline Phosphatase 65 (34-104) U/L Albumin 3.3 L (3.4-5.0) gm/dl
[2021-07-27] MEDS: NICOTINE 21 MG/24 HR TDSY TD SCH ×2 (03:04→07:45)
[2021-07-27] MEDS: HEPARIN SOD 5,000 UNIT/0.5 ML VIAL SQ SCH ×2 (05:09→13:48)
[2021-07-27 06:09] LABS: BUN Creatinine Ratio 12.8 (10-20); Calcium 8.2 mg/dl (8.5-10.1); Creatinine Clr Calc Pharmacy 89.7 ml/min; Est GFR (African American) 128.6 ml/min; Magnesium 1.7 mg/dl (1.7-2.4); Potassium 3.7 mmol/L (3.5-5.1)
[2021-07-27] MEDS: ALBUTEROL HFA 8 GM INHALER INH SCH ×2 (07:08→10:57)
[2021-07-27] MEDS: IPRATROPIUM BROMIDE HFA INHALER INH SCH ×2 (07:08→10:57)
[2021-07-27] MEDS: ACETAMINOPHEN 325 MG TAB PO PRN ×2 (07:40→13:48)
[2021-07-27] MEDS: METOPROLOL TARTRATE 25 MG TAB PO SCH (07:45)
[2021-07-27] MEDS: CHOLECALCIFEROL 1,000 UNITS 25 MCG TAB PO SCH (07:45)
[2021-07-27] MEDS: AMOXICILLIN 500 MG CAP PO SCH (07:46)
[2021-07-27] MEDS ORDERED: FUROSEMIDE 20 MG TAB PO SCH (09:00)
[2021-07-27 09:15] LABS: Hematocrit (blood only) 35.1 % (37-47); Hemoglobin 11.4 g/dL (12.0-16.0)
--- NOTE | 2021-07-27 13:40 | Hospitalist Progress Note ---
Date of Service July 27, 2021 Assessment & Plan (1) Leg swelling: Plan: Patient is a 66 yr female who presents with lower extremity edema. Lower extremity edema Likely multifactorial: Amlodipine, malnutrition, pulmonary hypertension --Venous Doppler:No evidence of deep venous thrombus. --ECHO: EF 55 to 60%. Left ventricle is normal in size. The right ventricle systolic function is normal. Left atrium size is normal. Right atrium size is normal. Aortic valve sclerosis, mild without significant stenosis. Moderate tricuspid regurgitation. Moderate pulmonary hypertension. Amlodipine discontinued Dietitian consulted to help with nutrition Continue low dose Lasix due to relatively low BP Appreciate cardiology input Needs follow up with Cardiology upon discharge Mild elevation of troponin Likely demand Ischemia T wave changes on EKG No wall motion abnormality on echo Patient denies any chest pain Troponin levels trended down Hypomagnesemia Hypokalemia Replace as needed Chronic Hyponatremia H/O SIADH Normal TSH Sodium 131 Continue fluid restriction Monitor Chronic Lumbago MRI Lumbar Spine 07/13/21:Minimal degenerative change without significant canal or foraminal stenosis. No abnormal enhancing lesion seen Pain control PT OT Rectal prolapse Follow up with surgery as outpatient Macrocytic anemia Normal folate, vitamin B12, Iron Panel No obvious source of bleeding FOBT: Negative Monitor CBC Hypertension Continue metoprolol Severe Protein calorie malnutrition BMI:16 Dietitian consult. 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 COPD No signs of excaerbation 2 Step: Needs 2 liters with activity DVT Px: Heparin SQ CODE STATUS Full code DISPOSITION: PT/OT: Home Admission and Anticipated Discharge Date Admission Date: July 25, 2021 Subjective Patient is seen and examined at bedside States feeling well today Eager to get discharged Leg swelling much improved Discussed with Cardiology today Denies any chest pain, shortness of breath, dizziness, nausea, abdominal pain Had 2 step today Review of Systems Review of Systems: All systems reviewed & are unremarkable except as noted in Subjective Physical Exam Physical Exam: Physical Exam: Vitals signs as noted above General Appearance: Thin, frail, chronically appearing, no apparent distress Head: normocephalic, Atraumatic Eyes: normal inspection, EOMI Neck: supple, Trachea midline Respiratory/Chest: Decreased breath sounds, CTA, No accessory muscle use Cardiovascular: S1, S2, No murmur Abdomen/GI:Soft, Non tender, Bowel sounds present Extremities/Musculoskeletal:normal inspection, 2+ B/L LE edema improved Neurologic/Psych:AAOX3, grossly no focal neurological deficits Skin: normal color, warm Results & Data Results & Data ([facility]) Vital Signs (Past 12 Hours) Vital Signs Temp Pulse Pulse Pulse Pulse Pulse Resp 07/27/21 12:17 77 80 74 79 07/27/21 11:00 37.1 C 60 14 07/27/21 10:57 60 16 07/27/21 08:00 36.9 C 77 16 07/27/21 07:09 92 H 20 07/27/21 03:12 36.8 C 59 L 18 Resp Resp Resp Resp BP BP Pulse Ox 07/27/21 12:17 18 20 18 18 07/27/21 11:00 99/65 L 99 07/27/21 10:57 99 07/27/21 08:00 111/73 96 07/27/21 07:09 83 L 07/27/21 03:12 117/74 92 Pulse Ox Pulse Ox Pulse Ox Pulse Ox 07/27/21 12:17 91 87 L 92 93 07/27/21 11:00 07/27/21 10:57 07/27/21 08:00 07/27/21 07:09 07/27/21 03:12 Laboratory Results Short CBC 07/27/21 Range/Units 08:47 Hgb 11.4 L (12.0-16.0) g/dL Hct 35.1 L (37-47) % BMP 07/27/21 05:28 Sodium 131 L Potassium 3.7 Chloride 96 L Carbon Dioxide 32 BUN 5 L Creatinine 0.39 L Glucose 70 Calcium 8.2 L
--- NOTE | 2021-07-27 13:51 | Discharge Summary ---
Date of Service July 27, 2021 Admission HPI Per Admitting Provider CHIEF COMPLAINT: Lower extremity edema, hyponatremia. HISTORY OF PRESENT ILLNESS: This is a 66-year-old female with past medical history significant for SIADH, hyperlipidemia, hypertension, vitamin D deficiency, protein calorie malnutrition, generalized osteoarthritis, discoid lupus, history of tobacco use disorder, protein calorie malnutrition, presents from home with lower extremity edema. The patient says last 2 days she is having lower extremity edema. She is also having back pain and sciatica, going on for some time. She saw also pain management was considered injection of left sacroiliac joint but the patient seems does not want the shot. Denies any chest pain, no shortness of breath. Has some sinusitis and taking antibiotics for that and cough from sinusitis. Occasional sob . No headache, no dizziness, no blurred visions, no earache. No nausea, no abdominal pain. Appetite is okay. No difficulty swallowing. Ambulates okay, afebrile. Admission Exam Per Admitting Provider PHYSICAL EXAMINATION: GENERAL: The patient is thin and frail, not in acute distress. VITAL SIGNS: Temperature 36.8, pulse 61, respiratory rate 22, blood pressure 107/77, oxygen 97% on 2 liters. HEENT: Pupils equal, round and reactive to light. Oral mucosa moist. LUNGS: No JVD, no neck masses. CARDIOVASCULAR: S1 and S2 heard. Regular rate and rhythm. No murmur, no gallop. RESPIRATORY: Normal AP diameter. No accessory muscle use. Occasional wheezing, no crackles. ABDOMEN: Soft. Bowel sounds are present, nontender, no distention. CENTRAL NERVOUS SYSTEM: Cranial nerves II-XII grossly intact, nonfocal. EXTREMITIES: Bilateral lower extremity pedal edema present, no erythema seen. Principal Diagnosis Pulmonary hypertension Leg edema Hypomagnesemia Hypokalemia Hyponatremia Discharge Data Allergies Allergy/AdvReac Type Severity Reaction Status Date / Time lactose AdvReac Intermediate Gastrointestinal Verified 07/25/21 20:22 Upset caffeine AdvReac Verified 07/26/21 14:13 prednisone AdvReac N/V Unverified 07/25/21 20:22 Consultations 07/25/21 20:43 ED Decision to Admit Stat 07/26/21 09:38 Consult Cardiology Routine Ordered Studies 07/25/21 18:24 US venous doppler [facility] Stat Hospital Course (1) Leg swelling: Patient is a 66 yr female who presents with lower extremity edema. Lower extremity edema Likely multifactorial: Amlodipine, malnutrition, pulmonary hypertension --Venous Doppler:No evidence of deep venous thrombus. --ECHO: EF 55 to 60%. Left ventricle is normal in size. The right ventricle systolic function is normal. Left atrium size is normal. Right atrium size is normal. Aortic valve sclerosis, mild without significant stenosis. Moderate tricuspid regurgitation. Moderate pulmonary hypertension. Amlodipine discontinued Dietitian consulted to help with nutrition Continue low dose Lasix due to relatively low BP Appreciate cardiology input Needs follow up with Cardiology upon discharge Mild elevation of troponin Likely demand Ischemia T wave changes on EKG No wall motion abnormality on echo Patient denies any chest pain Troponin levels trended down Hypomagnesemia Hypokalemia Replace as needed Chronic Hyponatremia H/O SIADH Normal TSH Sodium 131 Continue fluid restriction Monitor Chronic Lumbago MRI Lumbar Spine 07/13/21:Minimal degenerative change without significant canal or foraminal stenosis. No abnormal enhancing lesion seen Pain control PT OT Rectal prolapse Follow up with surgery as outpatient Macrocytic anemia Normal folate, vitamin B12, Iron Panel No obvious source of bleeding FOBT: Negative Monitor CBC Hypertension Continue metoprolol Severe Protein calorie malnutrition BMI:16 Dietitian consult. 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 COPD No signs of excaerbation 2 Step: Needs 2 liters with activity DVT Px: Heparin SQ CODE STATUS Full code DISPOSITION: PT/OT: Home Total Time Total Time Spent Total Time Spent (In Minutes): 45 minutes Discharge Plan Discharge Items Patient Disposition: Home - Self-Care Reason For Visit: LOWER EXTREMITY EDEMA Discharge Diagnosis: Pulmonary hypertension Leg edema Hypomagnesemia Hypokalemia Hyponatremia Activity: Per Instructions section Exercise/Sports: Gradually increase as tolerated Non-emergency contact: Primary Care Provider and [place] Call non-emergency contact if: you have any medication questions, your symptoms worsen, your pain is concerning for you and you have a fever Follow-up/Referrals: Alan Archibald DO [Primary Care Provider] - (Date & Time 07/30/2021 10:20 AM Provider Alan Archibald DO Department Family Practice [facility] ) Diet: Heart Healthy Fluids: 2000ml (8 cups) Addtl Attending Provider Instructions: Follow-up with your primary care physician Dr. 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 Seek immediate medical attention if your symptoms reoccur or worsen Please take all medications as instructed on discharge list below. Please call if you have any questions or problems. You can reach a [facility] hospitalist on duty at [facility] 24 hours a day by calling [phone] Pending Studies at Discharge: No Stand-Alone Forms: My [facility], Smoking Cessation Medications and DC Order Prescriptions: New furosemide [Lasix] 20 mg tablet 20 mg PO DAILY Qty: 30 RF: 0 potassium chloride 10 mEq tablet extended release 10 meq PO DAILY Qty: 30 RF: 0 Continued metoprolol tartrate 25 mg tablet 25 mg PO BID RF: 0 amoxicillin 500 mg capsule 500 mg PO BID RF: 0 cholecalciferol (vitamin D3) 25 mcg (1,000 unit) Tablet 25 mcg PO DAILY RF: 0 Discontinued amlodipine 5 mg tablet 5 mg PO DAILY RF: 0 Discharge Orders: Discharge Order (Routine); Ordered 07/27/21 Ordered By: Rashawn Lopes Admission Data Admit Date/Time: 07/25/21 23:34 Attending Provider: Rashawn Lopes Admit Provider: Gulshan Mancilla Primary Care Provider: Alan Archibald Other Providers: Gulshan Mancilla ; Siva Minor ; Arsenio Gallagher ; Jonh Echeverria ; Kelton Vegas ; Slava Allen ; Nishant Gibson ; Deedee Howe ; Calista Jackson ; Isi Mohamud ; Alexander Penn
== END 2021-07-27 14:30 | disposition home or self-care (01) | DRG 314 ==
LOC: ED 17:01 → SUATTDRO 23:34 → 2W 23:34
DX: E87.70 Fluid overload, unspecified; Z90.710 Acquired absence of both cervix and uterus; E83.42 Hypomagnesemia; Z88.8 Allergy status to other drugs, medicaments and biological substances; I10 Essential (primary) hypertension; L93.0 Discoid lupus erythematosus; E78.5 Hyperlipidemia, unspecified; F17.210 Nicotine dependence, cigarettes, uncomplicated; I27.20 Pulmonary hypertension, unspecified; E22.2 Syndrome of inappropriate secretion of antidiuretic hormone; D50.9 Iron deficiency anemia, unspecified; Z68.1 Body mass index [BMI] 19.9 or less, adult; K62.3 Rectal prolapse; I24.8 Other forms of acute ischemic heart disease; M19.90 Unspecified osteoarthritis, unspecified site; E43 Unspecified severe protein-calorie malnutrition; Z91.011 Allergy to milk products; Z91.018 Allergy to other foods; E87.6 Hypokalemia; Z90.49 Acquired absence of other specified parts of digestive tract; J44.9 Chronic obstructive pulmonary disease, unspecified